=== PATIENT | male | born 1960 | race American Indian/Alaskan Native ===

== ENCOUNTER 2017-08-26 21:07 | Emergency (ER) | payer OTHER ==
[~2017-08-26] VITALS: Ht 165.1 cm; Wt 78.9 kg
[~2017-08-26 21:07] MED LIST: BACTRIM DS TAB1 EACH PO; BACTROBAN22 GM TOP; BLOOD PRESSURE MED; KEFLEX500 MG PO; LEVAQUIN750 MG PO; LISINOPRIL10 MG PO; LISINOPRIL20 MG PO; MULTIVITAMINS1 EAC7 PO; NAPROXEN500 MG PO; TRAMADOL HCL50 MG PO; VISTARIL25 MG PO
[2017-08-26] MEDS ORDERED: LISINOPRIL20 MG PO (21:17)
== END 2017-08-27 00:59 | disposition home or self-care (01) ==
LOC: ED 21:07
DX: F10.129 Alcohol abuse with intoxication, unspecified (principal); I10 Essential (primary) hypertension; Z79.899 Other long term (current) drug therapy; Y90.8 Blood alcohol level of 240 mg/100 ml or more
CPT/HCPCS: 80053; 83690; 85025; 96361; 96374; 99283; G0480; J3411; J7030

== ENCOUNTER 2017-09-22 15:05 | Emergency (ER) | payer OTHER ==
[~2017-09-22] VITALS: Ht 165.1 cm; Wt 78.9 kg
--- NOTE | 2017-09-23 12:06 | EKG ---
[facility] [address] [place] [address] Signed Normal sinus rhythm Left axis deviation Abnormal ECG No previous ECGs available Confirmed by WILLIAM COLLAZO MD ([id number]) on 09/23/2017 12:06:36 PM Electronically Signed By: WILLIAM COLLAZO MD 09/23/17 1206 PATIENT NAME: ABDIRASHID LOPEZ Electrocardiogram DATE OF : 56 PHYSICIAN: WILLIAM COLLAZO MD REPORT #: [id number] REPORT IS CONFIDENTIAL AND NOT TO BE RELEASED WITHOUT AUTHORIZATION
== END 2017-09-22 17:45 | disposition home or self-care (01) ==
LOC: ED 15:05
DX: S06.9X9A Unspecified intracranial injury with loss of consciousness of unspecified duration, initial encounter (principal); F10.129 Alcohol abuse with intoxication, unspecified; I10 Essential (primary) hypertension; F17.200 Nicotine dependence, unspecified, uncomplicated; Z98.890 Other specified postprocedural states; Z79.899 Other long term (current) drug therapy; W10.9XXA Fall (on) (from) unspecified stairs and steps, initial encounter
CPT/HCPCS: 70450; 93005; 93010; 99284

== ENCOUNTER 2019-11-20 05:40 | Emergency (ER) | payer OTHER ==
[~2019-11-20] VITALS: Ht 170.2 cm; Wt 77.4 kg
[~2019-11-20 05:40] MED LIST changes: +NORCO 5-325 TA1 EACH PO
[2019-11-20] MEDS ORDERED: HYDROXYZINE HCL25 MG PO (06:22)
[2019-11-20] MEDS ORDERED: PREDNISONE20 MG PO (06:22)
== END 2019-11-20 06:27 | disposition home or self-care (01) ==
LOC: ED 05:40
DX: L40.9 Psoriasis, unspecified (principal); I10 Essential (primary) hypertension; Z87.891 Personal history of nicotine dependence; Z79.899 Other long term (current) drug therapy
CPT/HCPCS: 99283

== ENCOUNTER 2019-12-09 20:10 | Emergency (ER) | payer OTHER ==
[~2019-12-09] VITALS: Ht 170.2 cm; Wt 79.6 kg
[~2019-12-09 20:10] MED LIST changes: +HYDROXYZINE HCL25 MG PO; +PREDNISONE20 MG PO
--- OUTSIDE RECORDS SUMMARY | 2019-12-09 20:14 | XMS ---
PreManage Notification: ABDIRASHID LOPEZ Security Hearing Screener Events No recent Security Events currently on file CRITERIA MET - [facility] - 2 Visits in 30 Days CARE PROVIDERS There are no care providers on record at this time. Sofie has no Care Guidelines for this patient. [facility] NOTE: Visits indicate total known visits. ED/C VISIT TRACKING (12 MO.) [facility]2019 [facility] COMPLAINT: - UPPER BACK,ARMS,NECK PAIN 11/20/2019 05:41 [facility] Negron [place] TYPE: Emergency COMPLAINT: - BLOOD PRESSURE PROBLEM, SKIN PROBLEM DIAGNOSES: - Other mcc (current) drug therapy - Psoriasis, unspecified - Personal history of nicotine dependence - Essential (primary) hypertension 05/11/2019 20:53 [facility]gr[facility] [place] TYPE: Emergency COMPLAINT: - RIGHT INDEX FINGER LACERATION DIAGNOSES: - Essential (primary) hypertension - Oth foreign body or object entering through skin, init - Nicotine dependence, unspecified, uncomplicated - Laceration w/o fb of r idx fngr w/o damage to nail, init - Other mcc (current) drug therapy - Disp fx of distal phalanx of r idx fngr, init for opn fx INPATIENT VISIT TRACKING (12 MO.) No inpatient visits to display in this time frame [id number]
== END 2019-12-09 20:48 | disposition home or self-care (01) ==
LOC: ED 20:10
DX: L40.9 Psoriasis, unspecified (principal); I10 Essential (primary) hypertension; Z79.899 Other long term (current) drug therapy
CPT/HCPCS: 99282; J7512

== ENCOUNTER 2020-01-28 15:46 | Emergency (ER) | payer OTHER ==
[~2020-01-28] VITALS: Ht 170.2 cm; Wt 79.6 kg
[2020-01-28] MEDS ORDERED: HYDROXYZINE HCL25 MG PO (16:40)
[2020-01-28] MEDS ORDERED: PREDNISONE20 MG PO (16:40)
== END 2020-01-28 19:13 | disposition home or self-care (01) ==
LOC: ED 15:46
DX: S20.212A Contusion of left front wall of thorax, initial encounter (principal); S20.211A Contusion of right front wall of thorax, initial encounter; W10.9XXA Fall (on) (from) unspecified stairs and steps, initial encounter
CPT/HCPCS: 71046; 99283-25

== ENCOUNTER 2020-05-05 13:57 | Emergency (ER) | payer OTHER ==
[~2020-05-05] VITALS: Ht 170.2 cm; Wt 79.6 kg
--- OUTSIDE RECORDS SUMMARY | 2020-05-05 14:00 | XMS ---
PreManage Notification: ABDIRASHID LOPEZ Security Sulfonation Equipment Operator Events No recent Security Events currently on file CRITERIA MET - Group Notification - [facility] - Has Care Guidelines CARE PROVIDERS EAMON [facility] 12/13/2019-Current PHONE: [phone] Sofie has no Care Guidelines for this patient. Care History Medical/Surgical 12/13/2019 [facility] \T\middot;\T\nbsp; PATIENT IS A [employer] MEMBER. \T\middot;\T\nbsp; PLEASE REFER PATIENT TO [facility] FOR NON EMERGENT MEDICAL NEEDS. \T\middot;\ T\nbsp; [facility] CAN SEE PATIENTS SAME DAY FOR APTS IF PATIENT CALLS FIRST THING IN THE MORNING. E.D. VISIT COUNT (12 MO.) [address] [facility] TOTAL 5 NOTE: Visits indicate total known visits. ED/UCC VISIT TRACKING (12 MO.) 05/05/2020 13:57 [facility] [place] TYPE: Emergency COMPLAINT: - FALL, BACK PAIN 01/28/2020 15:47 [facility] [place] TYPE: Emergency COMPLAINT: - RIB PAIN, INJ DIAGNOSES: - Fall (on) (from) unspecified stairs and steps, initial encoun - Contusion of left front wall of thorax, initial encounter - Other chest pain - Contusion of right front wall of thorax, initial encounter 12/09/2019 20:11 [facility] [place] TYPE: Emergency COMPLAINT: - UPPER BACK,ARMS,NECK PAIN DIAGNOSES: - Other remote computer terminal operator (current) drug therapy - Psoriasis, unspecified - Rash and other nonspecific skin eruption - Essential (primary) hypertension 11/20/2019 05:41 [facility] [place] TYPE: Emergency COMPLAINT: - BLOOD PRESSURE PROBLEM, SKIN PROBLEM DIAGNOSES: - Other chcf (current) drug therapy - Psoriasis, unspecified - Personal history of nicotine dependence - Essential (primary) hypertension 05/11/2019 20:53 [facility] [place] TYPE: Emergency COMPLAINT: - RIGHT INDEX FINGER LACERATION DIAGNOSES: - Essential (primary) hypertension - Other foreign body or object entering through skin, initial e - Nicotine dependence, unspecified, uncomplicated - Laceration without foreign body of right index finger without - Other chcf (current) drug therapy - Displaced fracture of distal phalanx of right index finger, i INPATIENT VISIT TRACKING (12 MO.) No inpatient visits to display in this time frame [id number]
== END 2020-05-05 15:58 | disposition home or self-care (01) ==
LOC: ED 13:57
DX: F10.10 Alcohol abuse, uncomplicated (principal); S20.212A Contusion of left front wall of thorax, initial encounter; S20.211A Contusion of right front wall of thorax, initial encounter; I10 Essential (primary) hypertension; Z79.899 Other long term (current) drug therapy; W18.30XA Fall on same level, unspecified, initial encounter
CPT/HCPCS: 99283

== ENCOUNTER 2020-06-21 12:14 | Emergency (ER) | payer OTHER ==
[~2020-06-21] VITALS: Ht 170.2 cm; Wt 79.6 kg
--- OUTSIDE RECORDS SUMMARY | 2020-06-21 12:16 | XMS ---
PreManage Notification: ABDIRASHID LOPEZ Security Behavioral Pediatrician Events No recent Security Events currently on file CRITERIA MET - Group Notification - [facility] - Has Care Guidelines CARE PROVIDERS EAMON [facility] 12/13/2019-Current PHONE: [phone] Sofie has no Care Guidelines for this patient. Care History Medical/Surgical 12/13/2019 [facility] \T\middot;\T\nbsp; PATIENT IS A [employer] MEMBER. \T\middot;\T\nbsp; PLEASE REFER PATIENT TO [facility] FOR NON EMERGENT MEDICAL NEEDS. \T\middot;\ T\nbsp; [facility] CAN SEE PATIENTS SAME DAY FOR APTS IF PATIENT CALLS FIRST THING IN THE MORNING. E.D. VISIT COUNT (12 MO.) 5 [facility] TOTAL 5 NOTE: Visits indicate total known visits. ED/UCC VISIT TRACKING (12 MO.) 06/21/2020 12:14 [facility] [place] TYPE: Emergency COMPLAINT: - FALL 05/05/2020 13:57 RKIA Negron [place] TYPE: Emergency COMPLAINT: - FALL, BACK PAIN DIAGNOSES: - Low back pain - Alcohol dependence, uncomplicated - Contusion of right front wall of thorax, initial encounter - Contusion of left front wall of thorax, initial encounter - Essential (primary) hypertension - Fall on same level, unspecified, initial encounter - Alcohol abuse, uncomplicated - Other intermission coordinator (current) drug therapy 01/28/2020 15:47 [facility] [place] TYPE: Emergency COMPLAINT: - RIB PAIN, INJ DIAGNOSES: - Fall (on) (from) unspecified stairs and steps, initial encoun - Contusion of left front wall of thorax, initial encounter - Other chest pain - Contusion of right front wall of thorax, initial encounter 12/09/2019 20:11 [facility] [place] TYPE: Emergency COMPLAINT: - UPPER BACK,ARMS,NECK PAIN DIAGNOSES: - Other intermission coordinator (current) drug therapy - Psoriasis, unspecified - Rash and other nonspecific skin eruption - Essential (primary) hypertension 11/20/2019 05:41 [facility] [place] TYPE: Emergency COMPLAINT: - BLOOD PRESSURE PROBLEM, SKIN PROBLEM DIAGNOSES: - Other prison (current) drug therapy - Psoriasis, unspecified - Personal history of nicotine dependence - Essential (primary) hypertension INPATIENT VISIT TRACKING (12 MO.) No inpatient visits to display in this time frame [id number]
--- NOTE | 2020-06-21 15:24 | EKG ---
[facility] [address] [place], [place] [address] Signed Normal sinus rhythm Left axis deviation Abnormal ECG When compared with ECG of 22-SEP-2017 15:13, No significant change was found Confirmed by ALEX SOTOMAYOR MD ([id number]) on 06/21/2020 3:23:55 PM Electronically Signed By: ALEX SOTOMAYOR MD 06/21/20 1524 PATIENT NAME: ABDIRASHID LOPEZ Electrocardiogram DATE OF : 56 PHYSICIAN: ALEX SOTOMAYOR MD REPORT #: [id number] REPORT IS CONFIDENTIAL AND NOT TO BE RELEASED WITHOUT AUTHORIZATION
== END 2020-06-21 14:24 | disposition home or self-care (01) ==
LOC: ED 12:14
DX: S06.9X1A Unspecified intracranial injury with loss of consciousness of 30 minutes or less, initial encounter (principal); S00.01XA Abrasion of scalp, initial encounter; F10.229 Alcohol dependence with intoxication, unspecified; Y90.8 Blood alcohol level of 240 mg/100 ml or more; I10 Essential (primary) hypertension; W01.10XA Fall on same level from slipping, tripping and stumbling with subsequent striking against unspecified object, initial encounter
CPT/HCPCS: 70450; 72125; 80053; 84484; 85025; 93005; 93010; 96372; 99284-25; G0480; J3411

== ENCOUNTER 2020-07-26 14:32 | Emergency (ER) | payer OTHER ==
[~2020-07-26] VITALS: Ht 170.2 cm; Wt 79.6 kg
--- OUTSIDE RECORDS SUMMARY | 2020-07-26 14:34 | XMS ---
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 Care History Medical/Surgical 06/22/2020 [facility] - PATIENT IS [facility] ELIGIBLE, \T\middot;\T\nbsp; PLEASE REFER PATIENT TO [facility] FOR NON EMERGENT MEDICAL NEEDS. \T\middot;\T\nbsp; [facility] CAN SEE PATIENTS SAME DAY FOR APTS IF PATIENT CALLS FIRST THING IN THE MORNING. E.D. VISIT COUNT (12 MO.) [address] [place] [address] TOTAL 6 NOTE: Visits indicate total known visits. ED/UCC VISIT TRACKING (12 MO.) 07/26/2020 14:33 [facility] [place] TYPE: Emergency COMPLAINT: - ALTERED LEVEL CONSCIOUSNESS 06/21/2020 12:14 [facility] [place] TYPE: Emergency COMPLAINT: - FALL DIAGNOSES: - Unspecified intracranial injury with loss of consciousness of - Blood alcohol level of 240 mg/100 ml or more - Essential (primary) hypertension - Abrasion of scalp, initial encounter - Unspecified intracranial injury with loss of consciousness of - Alcohol dependence with intoxication, unspecified - Fall on same level from slipping, tripping and stumbling with - Abrasion of scalp, initial encounter 05/05/2020 13:57 [facility] [place] TYPE: Emergency COMPLAINT: - FALL, BACK PAIN DIAGNOSES: - Low back pain - Alcohol dependence, uncomplicated - Contusion of right front wall of thorax, initial encounter - Contusion of left front wall of thorax, initial encounter - Essential (primary) hypertension - Fall on same level, unspecified, initial encounter - Alcohol abuse, uncomplicated - Other group home (current) drug therapy 01/28/2020 15:47 [facility] [place] TYPE: Emergency COMPLAINT: - RIB PAIN, INJ DIAGNOSES: - Fall (on) (from) unspecified stairs and steps, initial encoun - Contusion of left front wall of thorax, initial encounter - Other chest pain - Contusion of right front wall of thorax, initial encounter 12/09/2019 20:11 IRKA Negron [place] TYPE: Emergency COMPLAINT: - UPPER BACK,ARMS,NECK PAIN DIAGNOSES: - Other remote computer terminal operator (current) drug therapy - Psoriasis, unspecified - Rash and other nonspecific skin eruption - Essential (primary) hypertension 11/20/2019 05:41 [facility] [place] TYPE: Emergency COMPLAINT: - BLOOD PRESSURE PROBLEM, SKIN PROBLEM DIAGNOSES: - Other group home (current) drug therapy - Psoriasis, unspecified - Personal history of nicotine dependence - Essential (primary) hypertension INPATIENT VISIT TRACKING (12 MO.) No inpatient visits to display in this time frame [id number]
--- NOTE | 2020-07-27 09:17 | EKG ---
[facility] [address] [place] [address] Signed Normal sinus rhythm Left axis deviation Abnormal ECG When compared with ECG of 21-JUN-2020 12:44, No significant change was found Confirmed by WILLIAM COLLAZO MD ([id number]) on 07/27/2020 9:16:58 AM Electronically Signed By: WILLIAM COLLAZO MD 07/27/20 0917 PATIENT NAME: ABDIRASHID LOPEZ Electrocardiogram DATE OF : 56 PHYSICIAN: WILLIAM COLLAZO MD REPORT #: [id number] REPORT IS CONFIDENTIAL AND NOT TO BE RELEASED WITHOUT AUTHORIZATION
== END 2020-07-26 17:15 | disposition home or self-care (01) ==
LOC: ED 14:32
DX: F10.229 Alcohol dependence with intoxication, unspecified (principal); Y90.8 Blood alcohol level of 240 mg/100 ml or more; I10 Essential (primary) hypertension; Z87.891 Personal history of nicotine dependence; Z79.899 Other long term (current) drug therapy
CPT/HCPCS: 80053; 81001; 83690; 83735; 85025; 93005; 93010; 99285-25; G0480; J7030

== ENCOUNTER 2021-05-21 06:32 | Emergency (ER) | payer OTHER ==
[~2021-05-21] VITALS: Ht 170.2 cm; Wt 79.6 kg
--- OUTSIDE RECORDS SUMMARY | 2021-05-21 06:40 | XMS ---
PreManage Notification: ABDIRASHID LOPEZ Security Independent Video Producer Events No recent Security Events currently on file CRITERIA MET - Group Notification CARE PROVIDERS EAMON [facility] 12/13/2019-Current PHONE: [phone] Sofie has no Care Guidelines for this patient. Care History Medical/Surgical 06/22/2020 [facility] - PATIENT IS [facility] ELIGIBLE, \T\middot;\T\nbsp; PLEASE REFER PATIENT TO [facility] FOR NON EMERGENT MEDICAL NEEDS. \T\middot;\T\nbsp; [facility] CAN SEE PATIENTS SAME DAY FOR APTS IF PATIENT CALLS FIRST THING IN THE MORNING. E.D. VISIT COUNT (12 MO.) 3 [facility] TOTAL 3 NOTE: Visits indicate total known visits. ED/UCC VISIT TRACKING (12 MO.) 05/21/2021 06:33 [facility] [place] TYPE: Emergency COMPLAINT: - CHEST PAIN 07/26/2020 14:33 [facility] [place] TYPE: Emergency COMPLAINT: - ALTERED LEVEL CONSCIOUSNESS DIAGNOSES: - Essential (primary) hypertension - Alcohol dependence with intoxication, unspecified - Blood alcohol level of 240 mg/100 ml or more - Altered mental status, unspecified - Personal history of nicotine dependence - Other skilled nursing (current) drug therapy 06/21/2020 12:14 [facility] [place] TYPE: Emergency COMPLAINT: - FALL DIAGNOSES: - Unspecified intracranial injury with loss of consciousness of 30 minutes or less, initial encounter - Blood alcohol level of 240 mg/100 ml or more - Essential (primary) hypertension - Abrasion of scalp, initial encounter - Unspecified intracranial injury with loss of consciousness of 30 minutes or less, initial encounter - Alcohol dependence with intoxication, unspecified - Fall on same level from slipping, tripping and stumbling with subsequent striking against unspecified object, initial encounter - Abrasion of scalp, initial encounter INPATIENT VISIT TRACKING (12 MO.) No inpatient visits to display in this time frame [id number]
--- NOTE | 2021-05-22 07:11 | EKG ---
[facility] [address] [place], [place] [address] Signed Normal sinus rhythm Left anterior fascicular block Abnormal ECG When compared with ECG of 26-JUL-2020 15:07, No significant change was found Confirmed by ALEX SOTOMAYOR MD ([id number]) on 05/22/2021 7:11:21 AM Electronically Signed By: ALEX SOTOMAYOR MD 05/22/21710 PATIENT NAME: ABDIRASHID LOPEZ Electrocardiogram DATE OF : 56 PHYSICIAN: ALEX SOTOMAYOR MD REPORT #: [id number] REPORT IS CONFIDENTIAL AND NOT TO BE RELEASED WITHOUT AUTHORIZATION
== END 2021-05-21 10:39 | disposition home or self-care (01) ==
LOC: ED 06:32
DX: R07.9 Chest pain, unspecified (principal); F10.129 Alcohol abuse with intoxication, unspecified; Y90.7 Blood alcohol level of 200-239 mg/100 ml; I10 Essential (primary) hypertension; Z79.899 Other long term (current) drug therapy
CPT/HCPCS: 71045; 80053; 83735; 84484; 85025; 93005; 93010; 99285-25; G0480; J7030

== ENCOUNTER 2021-05-30 22:55 | Emergency (ER) | payer OTHER ==
[~2021-05-30] VITALS: Ht 170.2 cm; Wt 79.6 kg
--- OUTSIDE RECORDS SUMMARY | 2021-05-30 23:02 | XMS ---
PreManage Notification: ABDIRASHID LOPEZ Security Car Detailer Events No recent Security Events currently on file CRITERIA MET - [facility] - 2 Visits in 30 Days - Group Notification CARE PROVIDERS EAMON [facility] 12/13/2019-Current PHONE: [phone] Sofie has no Care Guidelines for this patient. Care History Medical/Surgical 06/22/2020 [facility] - PATIENT IS [facility] ELIGIBLE, \T\middot;\T\nbsp; PLEASE REFER PATIENT TO [facility] FOR NON EMERGENT MEDICAL NEEDS. \T\middot;\T\nbsp; [facility] CAN SEE PATIENTS SAME DAY FOR APTS IF PATIENT CALLS FIRST THING IN THE MORNING. E.D. VISIT COUNT (12 MO.) 4 [facility] TOTAL 4 NOTE: Visits indicate total known visits. ED/UCC VISIT TRACKING (12 MO.) 05/30/2021 22:56 [facility] [place] TYPE: Emergency COMPLAINT: - INTOXICATION 05/21/2021 06:33 [facility]gron [place] TYPE: Emergency COMPLAINT: - CHEST PAIN DIAGNOSES: - Alcohol abuse with intoxication, unspecified - Essential (primary) hypertension - Chest pain, unspecified - Blood alcohol level of 200-239 mg/100 ml - Other termite exterminator (current) drug therapy 07/26/2020 14:33 [facility] [place] TYPE: Emergency COMPLAINT: - ALTERED LEVEL CONSCIOUSNESS DIAGNOSES: - Essential (primary) hypertension - Alcohol dependence with intoxication, unspecified - Blood alcohol level of 240 mg/100 ml or more - Altered mental status, unspecified - Personal history of nicotine dependence - Other intermediate (current) drug therapy 06/21/2020 12:[address] [facility] [place] TYPE: Emergency COMPLAINT: - FALL DIAGNOSES: [...] visits to display in this time frame [id number]
== END 2021-05-31 11:26 | disposition home or self-care (01) ==
LOC: ED 22:55
DX: F10.229 Alcohol dependence with intoxication, unspecified (principal); Y90.8 Blood alcohol level of 240 mg/100 ml or more; I10 Essential (primary) hypertension
CPT/HCPCS: 80053; 85025; 99284; G0480; J7030

== ENCOUNTER 2021-06-14 03:34 | Emergency (ER) | payer OTHER ==
[~2021-06-14] VITALS: Ht 170.2 cm; Wt 79.6 kg
--- OUTSIDE RECORDS SUMMARY | 2021-06-14 03:42 | XMS ---
PreManage Notification: ABDIRASHID LOPEZ Security Blintze Roller Events No recent Security Events currently on file CRITERIA MET - Group Notification - [facility] - 2 Visits in 30 Days CARE PROVIDERS EAMON [facility] 12/13/2019-Current PHONE: [phone] Sofie has no Care Guidelines for this patient. Care History Medical/Surgical 06/22/2020 [facility] - PATIENT IS [facility] ELIGIBLE, \T\middot;\T\nbsp; PLEASE REFER PATIENT TO [facility] FOR NON EMERGENT MEDICAL NEEDS. \T\middot;\T\nbsp; [facility] CAN SEE PATIENTS SAME DAY FOR APTS IF PATIENT CALLS FIRST THING IN THE MORNING. E.D. VISIT COUNT (12 MO.) [address] [facility] TOTAL 6 NOTE: Visits indicate total known visits. ED/UCC VISIT TRACKING (12 MO.) 06/14/2021 03:35 RIKA Coffey TYPE: Emergency COMPLAINT: - ALCOHOL INTOXICATION [facility]2021 [facility] DIAGNOSES: 0. INTOXICATION 05/30/2021 22:56 RIKA Coffey TYPE: Emergency COMPLAINT: - INTOXICATION DIAGNOSES: - Alcohol abuse with intoxication, unspecified - Alcohol abuse with intoxication, unspecified - Alcohol dependence with intoxication, unspecified - Essential (primary) hypertension - Blood alcohol level of 240 mg/100 ml or more 05/21/2021 06:33 [facility] Miguelangel Stubbs [place] TYPE: Emergency COMPLAINT: - CHEST PAIN DIAGNOSES: - Alcohol abuse with intoxication, unspecified - Essential (primary) hypertension - Chest pain, unspecified - Blood alcohol level of 200-239 mg/100 ml - Other terminal operator (current) drug therapy 07/26/2020 14:33 [facility]gr[facility] [place] TYPE: Emergency COMPLAINT: - ALTERED LEVEL CONSCIOUSNESS DIAGNOSES: - Essential (primary) hypertension - Alcohol dependence with intoxication, unspecified - Blood alcohol level of 240 mg/100 ml or more - Altered mental status, unspecified - Personal history of nicotine dependence - Other intermediate (current) drug therapy 06/21/2020 12:14 [facility] [address] [facility] Stubbs [place] TYPE: Emergency COMPLAINT: [...] visits to display in this time frame [id number]
== END 2021-06-14 11:15 | disposition home or self-care (01) ==
LOC: ED 03:34
DX: F10.129 Alcohol abuse with intoxication, unspecified (principal); Y90.8 Blood alcohol level of 240 mg/100 ml or more; I10 Essential (primary) hypertension; F17.200 Nicotine dependence, unspecified, uncomplicated; Z79.899 Other long term (current) drug therapy
CPT/HCPCS: 70450; 80053; 85025; 99285-25; G0480

== ENCOUNTER 2021-07-03 19:07 | Emergency (ER) | payer OTHER ==
[~2021-07-03] VITALS: Ht 170.2 cm; Wt 79.6 kg
--- OUTSIDE RECORDS SUMMARY | 2021-07-03 20:04 | XMS ---
PreManage Notification: ABDIRASHID LPOEZ Security Vat Skimmer Events No recent Security Events currently on file CRITERIA MET - [facility] - 2 Visits in 30 Days - Group Notification CARE PROVIDERS EAMON [facility] 12/13/2019-Current PHONE: [phone] Sofie has no Care Guidelines for this patient. Care History Medical/Surgical 06/22/2020 [facility] - PATIENT IS [facility] ELIGIBLE, \T\middot;\T\nbsp; PLEASE REFER PATIENT TO [facility] FOR NON EMERGENT MEDICAL NEEDS. \T\middot;\T\nbsp; [facility] CAN SEE PATIENTS SAME DAY FOR APTS IF PATIENT CALLS FIRST THING IN THE MORNING. E.D. VISIT COUNT (12 MO.) [address] [facility] TOTAL 6 NOTE: Visits indicate total known visits. ED/UCC VISIT TRACKING (12 MO.) 07/03/2021 19:07 [facility] [place] TYPE: Emergency COMPLAINT: - INTOXICATION 06/14/2021 03:35 [facility] [place] TYPE: Emergency COMPLAINT: - ALCOHOL INTOXICATION DIAGNOSES: - Alcohol abuse with intoxication, unspecified - Essential (primary) hypertension - Other keno terminal operator (current) drug therapy - Blood alcohol level of 240 mg/100 ml or more - Nicotine dependence, unspecified, uncomplicated 06/03/2021 00:[facility]: Emergency DIAGNOSES: 0. INTOXICATION 05/30/2021 22:56 [facility] [place] [facility]: Emergency COMPLAINT: - INTOXICATION DIAGNOSES: - Alcohol abuse with intoxication, unspecified - Alcohol abuse with intoxication, unspecified - Alcohol dependence with intoxication, unspecified - Essential (primary) hypertension - Blood alcohol level of 240 mg/100 ml or more 05/21/2021 06:33 [facility] [place] TYPE: Emergency COMPLAINT: - CHEST PAIN DIAGNOSES: - Alcohol abuse with intoxication, unspecified - Essential (primary) hypertension - Chest pain, unspecified - Blood alcohol level of 200-239 mg/100 ml - Other keno terminal operator (current) drug therapy 07/26/2020 14:33 [facility] [address] [place] TYPE: Emergency COMPLAINT: - ALTERED LEVEL CONSCIOUSNESS DIAGNOSES: - Essential (primary) hypertension - Alcohol dependence with intoxication, unspecified - Blood alcohol level of 240 mg/100 ml or more - Altered mental status, unspecified - Personal history of nicotine dependence - Other keno terminal operator (current) drug therapy INPATIENT VISIT TRACKING (12 MO.) No inpatient visits to display in this time frame [id number]
== END 2021-07-04 06:05 | disposition home or self-care (01) ==
LOC: ED 19:07
DX: F10.129 Alcohol abuse with intoxication, unspecified (principal); I10 Essential (primary) hypertension; F17.200 Nicotine dependence, unspecified, uncomplicated; Z79.899 Other long term (current) drug therapy; Y90.8 Blood alcohol level of 240 mg/100 ml or more
CPT/HCPCS: 70450; 80053; 85025; 99284-25; G0480; J7030

== ENCOUNTER 2021-08-06 18:57 | Emergency (ER) | payer OTHER ==
[~2021-08-06] VITALS: Ht 170.2 cm; Wt 74.8 kg
--- OUTSIDE RECORDS SUMMARY | 2021-08-06 19:06 | XMS ---
PreManage Notification: ABDIRASHID LOPEZ Security Derrick Car Operator Events No recent Security Events currently on file CRITERIA MET - 6 ED Visits in 6 Months - Group Notification CARE PROVIDERS ИРИНА KNUTSON [facility] 12/13/2019-[facility] PHONE: [phone] [facility] 07/04/2021-[facility] PHONE: [phone] Sofie has no Care Guidelines for this patient. Care History Medical/Surgical 06/22/2020 [facility] - [facility], \T\middot;\T\nbsp; PLEASE REFER PATIENT [facility] FOR NON EMERGENT MEDICAL NEEDS. \T\middot;\T\nbsp; [facility] CAN SEE PATIENTS SAME DAY FOR APTS IF PATIENT CALLS FIRST THING IN THE MORNING. E.D. VISIT COUNT (12 MO.) 1 [facility] [address] [facility] TOTAL 6 NOTE: Visits indicate total known visits. ED/UCC VISIT TRACKING (12 MO.) 08/06/2021 18:59 [facility] [place] TYPE: Emergency COMPLAINT: - FLU SYMPTOMS 07/03/2021 19:07 [facility] [place] TYPE: Emergency COMPLAINT: - INTOXICATION DIAGNOSES: - Essential (primary) hypertension - Blood alcohol level of 240 mg/100 ml or more - Other dedicated intermodal truck driver (current) drug therapy - Nicotine dependence, unspecified, uncomplicated - Alcohol abuse with intoxication, unspecified 06/14/2021 03:35 [facility] [place] TYPE: Emergency COMPLAINT: - ALCOHOL INTOXICATION DIAGNOSES: - Alcohol abuse with intoxication, unspecified - Essential (primary) hypertension - Other care home (current) drug therapy - Blood alcohol level of 240 mg/100 ml or more - Nicotine dependence, unspecified, uncomplicated 06/03/2021 00:44 [facility] [place] [facility] TYPE: Emergency DIAGNOSES: 0. INTOXICATION 05/30/2021 22:56 [facility]ub[facility] [place] TYPE: Emergency COMPLAINT: - INTOXICATION DIAGNOSES: - Alcohol abuse with intoxication, unspecified - Alcohol abuse with intoxication, unspecified - Alcohol dependence with intoxication, unspecified - Essential (primary) hypertension - Blood alcohol level of 240 mg/100 ml or more 05/21/2021 06:33 [facility] [place] TYPE: Emergency COMPLAINT: - CHEST PAIN DIAGNOSES: - Alcohol abuse with intoxication, unspecified - Essential (primary) hypertension - Chest pain, unspecified - Blood alcohol level of 200-239 mg/100 ml - Other care home (current) drug therapy INPATIENT VISIT TRACKING (12 MO.) No inpatient visits to display in this time frame [id number]
== END 2021-08-06 23:34 | disposition home or self-care (01) ==
LOC: ED 18:57
DX: J06.9 Acute upper respiratory infection, unspecified (principal); I10 Essential (primary) hypertension; F17.200 Nicotine dependence, unspecified, uncomplicated; Z20.822 Contact with and (suspected) exposure to COVID-19; Z79.899 Other long term (current) drug therapy
CPT/HCPCS: 99284; C9803; U0003

== ENCOUNTER 2021-10-30 05:01 | Emergency (ER) | payer OTHER ==
[~2021-10-30] VITALS: Ht 170.2 cm; Wt 74.8 kg
--- OUTSIDE RECORDS SUMMARY | 2021-10-30 05:08 | XMS ---
PreManage Notification: ABDIRASHID LOPEZ Security Fishing Line Winding Machine Operator Events No recent Security Events currently on file CRITERIA MET - Group Notification - 6 ED Visits in 6 Months CARE PROVIDERS ИРИНА KNUTSON [facility] 12/13/2019-[facility] PHONE: Unknown [facility]/[place] 07/04/2021-[facility] PHONE: [phone] Sofie has no Care Guidelines for this patient. Care History Medical/Surgical 06/22/2020 [facility] - PATIENT IS [employer] ELIGIBLE, \T\middot;\T\nbsp; PLEASE REFER PATIENT TO [facility] FOR NON EMERGENT MEDICAL NEEDS. \T\middot;\T\nbsp; [facility] CAN SEE PATIENTS SAME DAY FOR APTS IF PATIENT CALLS FIRST THING IN THE MORNING. E.D. VISIT COUNT (12 [address] [facility] RIKA [facility] TOTAL 7 NOTE: Visits indicate total known visits. ED/UCC VISIT TRACKING (12 MO.) 10/30/2021 05:02 [facility] [place] TYPE: Emergency COMPLAINT: - WEAKNESS 08/06/2021 18:59 [facility] [place] TYPE: Emergency COMPLAINT: - FLU SYMPTOMS DIAGNOSES: - Other usp (current) drug therapy - Nicotine dependence, unspecified, uncomplicated - Acute upper respiratory infection, unspecified - Headache, unspecified - Essential (primary) hypertension 07/03/2021 19:07 [facility] [place] TYPE: Emergency COMPLAINT: - INTOXICATION DIAGNOSES: - Essential (primary) hypertension - Blood alcohol level of 240 mg/100 ml or more - Other usp (current) drug therapy - Nicotine dependence, unspecified, uncomplicated - Alcohol abuse with intoxication, unspecified 06/14/2021 03:[address] [facility] [address] [facility] TYPE: Emergency COMPLAINT: - ALCOHOL INTOXICATION DIAGNOSES: - Alcohol abuse with intoxication, unspecified - Essential (primary) hypertension - Other usp (current) drug therapy - Blood alcohol level of 240 mg/100 ml or more - Nicotine dependence, unspecified, uncomplicated 06/03/2021 00:44 [facility] DIAGNOSES: 0. INTOXICATION 05/30/2021 22:56 [facility] [place] TYPE: Emergency [...] level of 200-239 mg/100 ml - Other superintendent container terminal (current) drug therapy INPATIENT VISIT TRACKING (12 MO.) No inpatient visits to display in this time frame [id number]
--- NOTE | 2021-10-30 22:01 | EKG ---
[facility] [address] [place] [address] Signed Normal sinus rhythm Left anterior fascicular block Nonspecific ST abnormality Abnormal ECG When compared with ECG of 21-MAY-2021 06:36, ST now depressed in Inferior leads Confirmed by YVONNE NDIAYE DO ([id number]) on 10/30/2021 10:00:43 PM Electronically Signed By: YVONNE NDIAYE DO 10/30/212200 PATIENT NAME: ABDIRASHID LOPEZ Electrocardiogram DATE OF : 56 PHYSICIAN: YVONNE NDIAYE DO REPORT #: [id number] REPORT IS CONFIDENTIAL AND NOT TO BE RELEASED WITHOUT AUTHORIZATION
== END 2021-10-30 10:55 | disposition home or self-care (01) ==
LOC: ED 05:01
DX: F10.20 Alcohol dependence, uncomplicated (principal); Y90.6 Blood alcohol level of 120-199 mg/100 ml; R53.1 Weakness; M54.50 Low back pain, unspecified; I10 Essential (primary) hypertension; F17.200 Nicotine dependence, unspecified, uncomplicated; Z79.899 Other long term (current) drug therapy; Z20.822 Contact with and (suspected) exposure to COVID-19
CPT/HCPCS: 71045; 72100; 80053; 81001; 83690; 83735; 84484; 85025; 93005; 93010; 96374; 99285-25; C9803; G0480; J2060; J7030; U0003

== ENCOUNTER 2021-12-20 13:04 | Emergency (ER) | payer OTHER ==
[~2021-12-20] VITALS: Ht 170.2 cm; Wt 75.1 kg
--- OUTSIDE RECORDS SUMMARY | 2021-12-20 13:12 | XMS ---
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 Care History Medical/Surgical 06/22/2020 [facility] - [facility], \T\middot;\T\nbsp; PLEASE REFER PATIENT TO [facility] FOR NON EMERGENT MEDICAL NEEDS. \T\middot;\T\nbsp; [facility] CAN SEE PATIENTS SAME DAY FOR APTS IF PATIENT CALLS FIRST THING IN THE MORNING. E.D. VISIT COUNT (12 MO.) 1 [facility] 7 RIKA Yi TOTAL 8 NOTE: Visits indicate total known visits. ED/UCC VISIT TRACKING (12 MO.) 12/20/2021 13:04 [facility] [place] TYPE: Emergency COMPLAINT: - FALL 10/30/2021 05:02 [facility] [place] TYPE: Emergency COMPLAINT: - WEAKNESS DIAGNOSES: - Nicotine dependence, unspecified, uncomplicated - Weakness - LOW BACK PAIN, UNSPECIFIED - Alcohol dependence, uncomplicated - Essential (primary) hypertension - Other lobsterman (current) drug therapy - Blood alcohol level of 120-199 mg/100 ml 08/06/2021 18:59 [facility] [place] TYPE: Emergency COMPLAINT: - FLU SYMPTOMS DIAGNOSES: - Other fci (current) drug therapy - Nicotine dependence, unspecified, uncomplicated - Acute upper respiratory infection, unspecified - Headache, unspecified - Essential (primary) hypertension 07/03/2021 19:[address] [facility] [place] TYPE: Emergency COMPLAINT: - INTOXICATION DIAGNOSES: - Essential (primary) hypertension - Blood alcohol level of 240 mg/100 ml or more - Other lobsterman (current) drug therapy - Nicotine dependence, unspecified, uncomplicated - Alcohol abuse with intoxication, unspecified 06/14/2021 03:35 [facility] [place] TYPE: Emergency COMPLAINT: - ALCOHOL INTOXICATION DIAGNOSES: - Alcohol abuse with intoxication, unspecified - Essential (primary) hypertension - Other lobsterman (current) drug therapy - Blood alcohol level of 240 mg/100 ml or more - Nicotine dependence, unspecified, uncomplicated 06/03/2021 00:44 [facility] DIAGNOSES: 0. INTOXICATION 05/30/2021 22:56 RIKA Coffe[facility] TYPE: Emergency COMPLAINT: - INTOXICATION DIAGNOSES: - Alcohol abuse with intoxication, unspecified - Alcohol abuse with intoxication, unspecified - Alcohol dependence with intoxication, unspecified - Essential (primary) hypertension - Blood alcohol level of 240 mg/100 ml or more 05/21/2021 06:33 RIKA Coffey TYPE: Emergency COMPLAINT: - CHEST PAIN DIAGNOSES: - Alcohol abuse with intoxication, unspecified - Essential (primary) hypertension - Chest pain, unspecified - Blood alcohol level of 200-239 mg/100 ml - Other lobsterman (current) drug therapy INPATIENT VISIT TRACKING (12 MO.) No inpatient visits to display in this time frame [email or web address]
== END 2021-12-20 18:30 | disposition home or self-care (01) ==
LOC: ED 13:04
DX: F10.239 Alcohol dependence with withdrawal, unspecified (principal); S60.511A Abrasion of right hand, initial encounter; I10 Essential (primary) hypertension; L40.9 Psoriasis, unspecified; F17.200 Nicotine dependence, unspecified, uncomplicated; Z79.899 Other long term (current) drug therapy; W01.0XXA Fall on same level from slipping, tripping and stumbling without subsequent striking against object, initial encounter
CPT/HCPCS: 36415; 80048; 85025; 99284; G0480

== ENCOUNTER 2022-07-05 14:31 | Emergency (ER) | payer OTHER ==
[~2022-07-05] VITALS: Ht 167.6 cm; Wt 81.9 kg
--- OUTSIDE RECORDS SUMMARY | 2022-07-05 14:38 | XMS ---
PreManage Notification: ABDIRASHID LOPEZ Security Trouble Clerk Events No recent Security Events currently on file CRITERIA MET - Group Notification CARE PROVIDERS ИРИНА KNUTSON [facility] 12/13/2019-[facility] PHONE: Unknown [facility]/[place] 07/04/2021-[facility] PHONE: [phone] Sofie has no Care Guidelines for this patient. Care History Medical/Surgical 06/22/2020 [facility] - [facility], \T\middot;\T\nbsp; PLEASE REFER PATIENT TO [facility] FOR NON EMERGENT MEDICAL NEEDS. \T\middot;\T\nbsp; [facility] CAN SEE PATIENTS SAME DAY FOR APTS IF PATIENT CALLS FIRST THING IN THE MORNING. E.D. VISIT COUNT (12 MO.) 1 Magdaleno [facility] 4 RIKA Yi TOTAL 5 NOTE: Visits indicate total known visits. ED/UCC VISIT TRACKING (12 MO.) 07/05/2022 14:32 [facility] [place] TYPE: Emergency COMPLAINT: - BODY RASH 03/28/2022 11:35 [facility] [place] TYPE: Emergency DIAGNOSES: - Unspecified injury of unspecified eye and orbit, initial encounter - fb in eye - Injury of conjunctiva and corneal abrasion without foreign body, left eye, initial encounter 12/20/2021 13:04 [facility] [place] [place] TYPE: Emergency COMPLAINT: - FALL DIAGNOSES: - Nicotine dependence, unspecified, uncomplicated - Other senior care (current) drug therapy - Psoriasis, unspecified - Essential (primary) hypertension - Fall on same level from slipping, tripping and stumbling without subsequent striking against object, initial encounter - Alcohol dependence with withdrawal, unspecified - Alcohol abuse with intoxication, unspecified - Abrasion of right hand, initial encounter 10/30/2021 05:02 [facility] [place] [place] TYPE: Emergency COMPLAINT: - WEAKNESS DIAGNOSES: - LOW BACK PAIN, UNSPECIFIED - Nicotine dependence, unspecified, uncomplicated - Other senior care (current) drug therapy - Alcohol dependence, uncomplicated - Weakness - Blood alcohol level of 120-199 mg/100 ml - Essential (primary) hypertension 08/06/2021 18:59 [facility] [place] TYPE: Emergency COMPLAINT: - FLU SYMPTOMS DIAGNOSES: - Acute upper respiratory infection, unspecified - Other senior care (current) drug therapy - Headache, unspecified - Nicotine dependence, unspecified, uncomplicated - Essential (primary) hypertension INPATIENT VISIT TRACKING (12 MO.) No inpatient visits to display in this time frame [email or web address]
[2022-07-05] MEDS ORDERED: TRIAMCINOLONE A15 G3 TOP (19:38)
== END 2022-07-05 20:19 | disposition home or self-care (01) ==
LOC: ED 14:31
DX: L40.9 Psoriasis, unspecified (principal); I10 Essential (primary) hypertension; F17.200 Nicotine dependence, unspecified, uncomplicated; Z79.899 Other long term (current) drug therapy
CPT/HCPCS: 99282; J3301

== ENCOUNTER 2022-08-29 02:27 | Emergency (ER) | payer OTHER ==
[~2022-08-29] VITALS: Ht 167.6 cm; Wt 81.6 kg
[~2022-08-29 02:27] MED LIST changes: +TRIAMCINOLONE A15 G3 TOP
--- OUTSIDE RECORDS SUMMARY | 2022-08-29 02:29 | XMS ---
PreManage Notification: ABDIRASHID LOPEZ Security Sash Sticker Events No recent Security Events currently on file CRITERIA MET - Group Notification CARE PROVIDERS ИРИНА KNUTSON [facility] 12/13/2019-[facility] PHONE: Unknown [facility]/[place] 07/04/2021-[facility] PHONE: [phone] Sofie has no Care Guidelines for this patient. Care History Medical/Surgical 06/22/2020 [facility] - [facility], \T\middot;\T\nbsp; PLEASE REFER PATIENT TO [facility] FOR NON EMERGENT MEDICAL NEEDS. \T\middot;\T\nbsp; [facility] CAN SEE PATIENTS SAME DAY FOR APTS IF PATIENT CALLS FIRST THING IN THE MORNING. E.D. VISIT COUNT (12 MO.) 1 Magdaleno Jackson 4 RIKA Yi TOTAL 5 NOTE: Visits indicate total known visits. ED/UCC VISIT TRACKING (12 MO.) 08/29/2022 02:27 [facility] [place] TYPE: Emergency COMPLAINT: - BLOOD PRESSURE PROBLEM 07/05/2022 14:32 [facility] [place] TYPE: Emergency COMPLAINT: - BODY RASH DIAGNOSES: - Rash and other nonspecific skin eruption - Other filler leaf cutter long (current) drug therapy - Psoriasis, unspecified - Nicotine dependence, unspecified, uncomplicated - Essential (primary) hypertension 03/28/2022 11:35 [facility] [place] TYPE: Emergency DIAGNOSES: - Injury of conjunctiva and corneal abrasion without foreign body, left eye, initial encounter - Unspecified injury of unspecified eye and orbit, initial encounter - fb in eye 12/20/2021 13:04 [facility] [place] [place] TYPE: Emergency COMPLAINT: - FALL DIAGNOSES: - Fall on same level from slipping, tripping and stumbling without subsequent striking against object, initial encounter - Alcohol dependence with withdrawal, unspecified - Alcohol abuse with intoxication, unspecified - Abrasion of right hand, initial encounter - Nicotine dependence, unspecified, uncomplicated - Other filler leaf cutter long (current) drug therapy - Psoriasis, unspecified - Essential (primary) hypertension 10/30/2021 05:02 [facility] [place] [place] TYPE: Emergency COMPLAINT: - WEAKNESS DIAGNOSES: - Alcohol dependence, uncomplicated - Weakness - Blood alcohol level of 120-199 mg/100 ml - Essential (primary) hypertension - LOW BACK PAIN, UNSPECIFIED - Nicotine dependence, unspecified, uncomplicated - Other intermediate (current) drug therapy INPATIENT VISIT TRACKING (12 MO.) No inpatient visits to display in this time frame [email or web address]
[2022-08-29] MEDS ORDERED: CARVEDILOL3.125 MG PO ×2 (02:36→04:20)
[2022-08-29] MEDS ORDERED: LISINOPRIL20 MG PO (04:20)
--- NOTE | 2022-08-29 17:05 | EKG ---
[facility] [address] [facility] [address] [place], [place] [address] Signed Sinus tachycardia Left axis deviation Abnormal ECG When compared with ECG of 30-OCT-2021 05:53, ST no longer depressed in Inferior leads Confirmed by ALEX SOTOMAYOR MD ([id number]) on 08/29/2022 5:05:33 PM Electronically Signed By: ALEX SOTOMAYOR MD 08/29/22 1705 PATIENT NAME: ABDIRASHID LOPEZ Electrocardiogram DATE OF : 56 PHYSICIAN: ALEX SOTOMAYOR MD REPORT #: [id number] REPORT IS CONFIDENTIAL AND NOT TO BE RELEASED WITHOUT AUTHORIZATION
== END 2022-08-29 05:13 | disposition home or self-care (01) ==
LOC: ED 02:27
DX: I10 Essential (primary) hypertension (principal); L40.9 Psoriasis, unspecified; F17.200 Nicotine dependence, unspecified, uncomplicated
CPT/HCPCS: 36415; 71045; 80053; 83735; 84484; 85025; 85610; 93005; 93010; 96365; 96375; 99285-25; G0480; J2405; J3475

== ENCOUNTER 2024-09-13 15:33 | Emergency (ER) | payer OTHER ==
[~2024-09-13] VITALS: Ht 167.6 cm; Wt 80.0 kg
--- OUTSIDE RECORDS SUMMARY | ~2024-09-13 | XMS | Continuity of Care Document ---
Demographics + + + | Address | [address] | | | [place] [address] | + + + | Preferred Language | Unknown | + + + | Marital Status | Unknown | + + + | Restorationism Affiliation | Unknown | + + + | Race | or | + + + | Ethnic Group | Not or | + + + Author + + + | Author | [facility] | + + + | Organization | [facility] | + + + | Address | [address] | | | [place] [address] | + + + | Phone | | + + + Care Team Providers + + + + | Care Rail Car Repair Carman Name | Role | Phone | + + + + Unavailable | Unavailable | + + + + Allergies No information. Encounters No information. Functional Status No information. Immunizations No information. Medications No information. Problems + + + + | date | description | facility | + + + + | 2024-08-21 21:44:48 | Other usp (current) | [facility] | | | drug therapy | | + + + + Procedures No information. Results/Labs No information. Social History +--------+ + + | date | description | facility | +--------+ + + Vital Signs No information."
[~2024-09-13 15:33] MED LIST changes: +CARVEDILOL3.125 MG PO
[2024-09-13 17:40] VITALS: BP 127/84
== END 2024-09-13 17:42 | disposition home or self-care (01) ==
LOC: ED 15:33
DX: S01.81XA Laceration without foreign body of other part of head, initial encounter (principal); S20.212A Contusion of left front wall of thorax, initial encounter; F10.129 Alcohol abuse with intoxication, unspecified; I10 Essential (primary) hypertension; F17.200 Nicotine dependence, unspecified, uncomplicated; Z79.899 Other long term (current) drug therapy; W18.30XA Fall on same level, unspecified, initial encounter
CPT/HCPCS: 70450; 71250; 72125; 99284-25

== ENCOUNTER 2024-10-27 13:56 | Inpatient (IN) | payer MEDICARE, OTHER ==
[~2024-10-27] VITALS: Ht 167.6 cm; Wt 64.0 kg
--- OUTSIDE RECORDS SUMMARY | ~2024-10-27 | XMS | Continuity of Care Document ---
Demographics + + + | Address | [address] | | | [place] [address] | + + + | Preferred Language | Unknown | + + + | Marital Status | Unknown | + + + | Hinduism Affiliation | Unknown | + + + | Race | or | + + + | Ethnic Group | or | + + + Author + + + | Author | [facility] | + + + | Organization | [facility] | + + + | Address | [address] | | | [place] [address] | + + + | Phone | | + + + Care Team Providers + + + + | Care Health And Wellness Director Name | Role | Phone | + + + + Unavailable | Unavailable | + + + + Allergies No information. Encounters No information. Functional Status No information. Immunizations No information. Medications No information. Problems + + + + | date | description | facility | + + + + | 2024-08-21 21:44:48 | Other alf (current) | [facility] | | | drug therapy | | + + + + Procedures No information. Results/Labs No information. Social History +--------+ + + | date | description | facility | +--------+ + + Vital Signs No information."
--- OUTSIDE RECORDS SUMMARY | ~2024-10-27 | XMS | Continuity of Care Document ---
Demographics + + + | Address | [address] | | | [place] [address] | + + + | Preferred Language | Unknown | + + + | Marital Status | Unknown | + + + | Gnosticism Affiliation | Unknown | + + + | Race | or | + + + | Ethnic Group | or | + + + Author + + + | Author | [facility] | + + + | Organization | [facility] | + + + | Address | [address] | | | [place] [address] | + + + | Phone | | + + + Care Team Providers + + + + | Care Calibration Checker Name | Role | Phone | + + + + Unavailable | Unavailable | + + + + Allergies No information. Encounters No information. Functional Status No information. Immunizations No information. Medications No information. Problems + + + + | date | description | facility | + + + + | 2024-08-21 21:44:48 | Other group home (current) | [facility] | | | drug therapy | | + + + + Procedures No information. Results/Labs No information. Social History +--------+ + + | date | description | facility | +--------+ + + Vital Signs No information."
[2024-10-27] MEDS ORDERED: SODIUM CHLORIDE 0.9% 1,000 ML IV PRN ×3 (14:45→15:30)
[2024-10-27 14:48] LABS: BASOPHILS 0.1 % (0-2); HEMATOCRIT 34.2 % (35.0-50.0); HEMOGLOBIN 11.8 g/dL (12.0-18.0); LYMPHOCYTES 2.8 % (24-44); MCH 32.4 (27-36); MCHC 34.4 g/dl (30-36); MCV 94.2 fl (81-99); MONOCYTES 3.7 % (0-12); NEUTROPHILS 93.4 % (39-80); PLATELET COUNT 248 K/uL (140-440); RBC 3.63 M/ul (4.3-5.7); RDW 15.7 (10.5-15.0)
[2024-10-27 15:00] LABS: BILIRUBIN, URINE POSITIVE (negative); BLOOD/HGB, URINE LARGE (Negative); KETONE, URINE TRACE (Negative); LEUK ESTERASE, URINE SMALL (negative); NITRITE, URINE NEGATIVE (negative)
[2024-10-27] MEDS ORDERED: NOREPINEPHRINE BITARTRATE 250 ML IV SCH (15:00)
[2024-10-27 15:02] LABS: ALBUMIN 2.6 g/dL (3.4-5.0); ALBUMIN/GLOBULIN RATIO 0.41 (1.1-2.4); ALCOHOL, MEDICAL <3 ng/dL (<3); ALKALINE PHOSPHATASE 112 U/L (46-116); ALT (SGPT) 39 U/L (14-59); ANION GAP 25.3 (7-21); AST (SGOT) 54 U/L (15-37); BILIRUBIN, TOTAL 0.6 ng/dL (0.2-1.0); BUN/CREATININE RATIO 14.19 (6.0-28.6); CALCIUM 8.3 mg/dL (8.5-10.1); CARBON DIOXIDE 14 mmol/L (21-32); CHLORIDE 89 mmol/L (98-107); CREATININE, SERUM 6.06 mg/dL (0.70-1.30); GLOMERULAR FILTRATION RATE,EST 10 mL/min (>60); INR 1.12 (0.80-1.30); MAGNESIUM 1.9 mg/dL (1.8-2.4); POTASSIUM 3.3 mmol/L (3.5-5.1); PROTIME 14.3 Sec (11.2-14.2); UREA NITROGEN 86 mg/dL (7-18)
[2024-10-27 15:05] LABS: WHITE BLOOD CELLS, URINE >50 /HPF (0-5)
[2024-10-27 15:07] LABS: BACTERIA, URINE 3+ /hpf (negative); CASTS, URINE NONE SEEN \\lpf; COLLECTION TYPE, URINE CLEAN CATCH; CRYSTALS, URINE NONE SEEN (0-1+); EPITHELIAL CELLS, URINE 0 /lpf (0-1+); RED BLOOD CELLS, URINE 0-1 /hpf (0-5); REFLEX CULTURE, URINE Yes (No)
[2024-10-27] MEDS ORDERED: CEFTRIAXONE/SODIUM CHLORIDE 2 GM/100 ML PIGGYBACK IV ONE (15:15)
[2024-10-27] MEDS ORDERED: metroNIDAZOLE/SODIUM CHLORIDE 500 MG/100 ML PIGGYBACK IV ONE (15:15)
[2024-10-27 15:20] LABS: LACTIC ACID, BLOOD 1.4 mmol/L (0.4-2.0)
[2024-10-27 15:23] LABS: PH, VENOUS 7.236 (7.31-7.41)
[2024-10-27 15:33] LABS: INFLUENZA B NAA NEGATIVE (NEGATIVE); RESPIRATORY SYNCYTIAL VIR NAA NEGATIVE (NEGATIVE)
[2024-10-27 16:11] LABS: HEMATOCRIT 32.8 % (35.0-50.0); MCH 31.9 (27-36); MCHC 33.4 g/dl (30-36); MCV 95.3 fl (81-99); PLATELET COUNT 223 K/uL (140-440); RBC 3.44 M/ul (4.3-5.7); RDW 16.1 (10.5-15.0)
[2024-10-27 16:25] LABS: LYMPHOCYTES, MANUAL DIFF 10; MONOCYTES, MANUAL DIFF 2; NEUTROPHILS, MANUAL DIFF 88
[2024-10-27 16:26] LABS: ALBUMIN 2.1 g/dL (3.4-5.0); ALBUMIN/GLOBULIN RATIO 0.39 (1.1-2.4); ANION GAP 24.1 (7-21); BILIRUBIN, TOTAL 0.5 ng/dL (0.2-1.0); BUN/CREATININE RATIO 15.31 (6.0-28.6); CREATININE, SERUM 5.42 mg/dL (0.70-1.30); POTASSIUM 3.1 mmol/L (3.5-5.1); PROTEIN, TOTAL 7.5 g/dL (6.4-8.2)
[2024-10-27] MEDS ORDERED: DEXTROSE 5% - LACTATED RINGERS 1,000 ML IV SCH (18:45)
[2024-10-27] MEDS ORDERED: ACETAMINOPHEN 325 MG TAB PO PRN (18:45)
[2024-10-27] MEDS ORDERED: PROCHLORPERAZINE EDISYLATE 10 MG/2 ML VIAL IV PRN (18:45)
[2024-10-27] MEDS ORDERED: POTASSIUM CHLORIDE 40 MEQ,LIDOCAINE HCL 1% 40 MG in DEXTROSE 5% 250 ML IV ONE (18:45)
[2024-10-27] MEDS ORDERED: ondansetron HCL 4 MG/2 ML VIAL IV PRN (18:45)
--- NOTE | 2024-10-27 19:05 | NUR ---
patient arrived to CCU room 130 via stretcher. handoff report received from ER nurse. patient at bedside.
[2024-10-27 19:12] VITALS: BP 94/58
[2024-10-27 20:00] VITALS: BP 113/99
[2024-10-27] MEDS ORDERED: POTASSIUM CHLORIDE 10 MEQ/100 ML BAG IV SCH (20:00)
--- NOTE | 2024-10-27 20:05 | NUR ---
PATIENT ALERT AND ORIENTED, ABLE TO FOLLOW COMMANDS AND ANSWERS QUESTIONS APPROPRIATELY. PATIENT REMAINS ON ROOM AIR, SOB AT TIMES, RR RANGING FROM 20-40'S. PATIENT HAS PRODUCTIVE COUGH, WITH THICK BROWN SPUTUM. PATIENT REMAINS AFEBRILE. PATIENT IV SITES WNL. PATIENT REMAINS AT BEDSIDE. CALL LIGHT WITHIN REACH.
[2024-10-27 20:15] LABS: ANION GAP 25.2 (7-21); BUN/CREATININE RATIO 15.96 (6.0-28.6); CALCIUM 7.3 mg/dL (8.5-10.1); CREATININE, SERUM 5.26 mg/dL (0.70-1.30); POTASSIUM 3.2 mmol/L (3.5-5.1)
[2024-10-27 20:30] VITALS: BP 100/68
--- NOTE | 2024-10-27 20:46 | EKG ---
[facility] [address] [place] [address] Signed Normal sinus rhythm Minimal voltage criteria for LVH, may be normal variant ( R in aVL ) Borderline ECG When compared with ECG of 29-AUG-2022 02:26, Nonspecific T wave abnormality now evident in Inferior leads Confirmed by Raine Hardy MD () on 10/27/2024 8:46:29 PM Electronically Signed By: RAINE HARDY MD 10/27/242045 PATIENT NAME: ABDIRASHID LOPEZ Electrocardiogram DATE OF : 56 PHYSICIAN: RAINE HARDY MD REPORT #: [id number] REPORT IS CONFIDENTIAL AND NOT TO BE RELEASED WITHOUT AUTHORIZATION
[2024-10-27 21:00] VITALS: BP 120/103
[2024-10-27] MEDS ORDERED: LORazepam 2 MG/ML VIAL IV/IM PRN (21:00)
[2024-10-27] MEDS ORDERED: AZITHROMYCIN 500 MG in DEXTROSE 5% 250 ML IV SCH (21:00)
[2024-10-27] MEDS ORDERED: MELATONIN 3 MG TAB PO PRN (21:00)
[2024-10-27] MEDS ORDERED: OSELTAMIVIR PHOSPHATE 30 MG CAP PO SCH (21:00)
[2024-10-27] MEDS ORDERED: LORazepam 1 MG TAB PO PRN (21:00)
[2024-10-27] MEDS ORDERED: guaiFENesin 600 MG TABCR PO PRN (21:15)
[2024-10-27] MEDS ORDERED: BENZONATATE 100 MG CAP PO PRN (21:15)
[2024-10-27] MEDS ORDERED: DEXTROSE 5% 1,000 ML IV SCH (21:30)
--- NOTE | 2024-10-27 21:30 | NUR ---
DOCTOR UPDATED ON PATIENT
[2024-10-27] MEDS ORDERED: AZITHROMYCIN 500 MG VIAL ONE (21:31)
[2024-10-27 22:00] VITALS: BP 97/64
--- NOTE | 2024-10-27 22:50 | NUR ---
patient RR continues to be 20-45. patient reports feeling SOB at times. patient SPO2 in the low 90's. patient continues to have productive cough. call light within reach. remains at bedside.
[2024-10-27 23:00] VITALS: BP 122/81
--- NOTE | 2024-10-27 23:07 | NUR ---
patient CIWA score of 10, PRN ativan given. patient reports he cant get comfortable and fall asleep. patient repositioned in bed. patient oxygen saturation drops as low as 84%, patient placed on 3L NC. RT in room to see patient.
[2024-10-28] VITALS (49 sets, daily range): BP systolic 63–165; BP diastolic 49–130
--- NOTE | 2024-10-28 00:06 | NUR ---
PATIENT INCONT OF STOOL. PATIENTS BEDDING CHANGED. PATIENT IS NOW HALLUCINATING. CIWA NOTED TO BE 14. PRIMARY RN IN ROOM TO EVAL PATIENT. LAB IN ROOM TO DRAW BLOOD. NO ATIVAN GIVEN AT THIS TIME DUE TO SOFT BP. PATIENT IS ON 3L VIA NC. PATIENT IS NOTED TO BE MAKING A GRUNTING SOUND BUT DENIES ANY SOB. RT IN TO EVAL PATIENT.
[2024-10-28 00:09] LABS: ANION GAP 23.3 (7-21); BUN/CREATININE RATIO 17.17 (6.0-28.6); CALCIUM 7.1 mg/dL (8.5-10.1); CREATININE, SERUM 4.89 mg/dL (0.70-1.30); POTASSIUM 3.3 mmol/L (3.5-5.1)
--- NOTE | 2024-10-28 00:15 | NUR ---
PATIENT CONTINUES TO HAVE RR 20-40'S. PATIENT WOB NOTED TO BE INCREASED, ON 3L NC, SPO2 IN LOW 90'S. PATIENT NOTED TO BE INCREASINGLY CONFUSED AND RESTLESS. PATIENT HAVING HALLUCINATIONS. RT IN ROOM TO EVALUATE PATIENT. PATIENT CONTINUES TO HAVE HARSH COUGH. BLOOD PRESSURE NOTED TO BE SOFT. THIS RN IN ROOM TO REASSESS, UNABLE TO OBTAIN ACCURATE BP READING DUE TO PATIENT RESTLESSNESS.
--- NOTE | 2024-10-28 00:20 | NUR ---
PLACED CALL TO MD TO UPDATE ON PATIENT STATUS. THIS RN REQUESTED MD TO COME TO BEDSIDE AND EVAL PATIENT. MD TO COME EVAL PATIENT.
--- NOTE | 2024-10-28 00:36 | NUR ---
DR HARDY IN TO ASSESS PATIENT
[2024-10-28] MEDS ORDERED: LACTATED RINGER'S 1,000 ML IV SCH ×2 (00:45→22:45)
[2024-10-28] MEDS ORDERED: PHENOBARBITAL SOD 130 MG/ML VIAL IV ONE (00:45)
[2024-10-28] MEDS ORDERED: NOREPINEPHRINE BITARTRATE 250 ML IV SCH (01:00)
[2024-10-28] MEDS ORDERED: PHENOBARBITAL SOD 130 MG/ML VIAL IV PRN ×2 (01:15→22:45)
--- NOTE | 2024-10-28 01:38 | NUR ---
PATIENT NOTED TO HAVE SOFT BP. PATIENT STARTED IN NOREPI DRIP PER ORDER. PATIENT IS RESTING IN BED WITH EYES CLOSED, RR 27. PATIENT REMAINS ON 3L VIA NC. BED ALARM ON FOR SAFETY.
--- NOTE | 2024-10-28 01:43 | NUR ---
NOREPI TITRATED PER PROTOCOL-SEE FLOWSHEET
--- NOTE | 2024-10-28 03:11 | NUR ---
PATIENT REMAINS ON NOREPINEPHRINE GTT AT 7 MCG/MIN. IV SITE WNL. PATIENT REMAINS ON 3L NC, SPO2 98%, RR 27. PATIENT CONTINUES TO HAVE OCCASIONAL HARSH COUGH. NO NEEDS AT THIS TIME. REMAINS AT BEDSIDE. CALL LIGHT IN REACH.
[2024-10-28 05:51] LABS: BASOPHILS 0.4 % (0-2); EOSINOPHILS 0.3 % (0-6); HEMATOCRIT 34.4 % (35.0-50.0); HEMOGLOBIN 11.7 g/dL (12.0-18.0); LYMPHOCYTES 2.7 % (24-44); MCH 32.6 (27-36); MCHC 33.9 g/dl (30-36); NEUTROPHILS 92.6 % (39-80); PH, VENOUS 7.185 (7.31-7.41); PLATELET COUNT 256 K/uL (140-440); RBC 3.59 M/ul (4.3-5.7); RDW 16.4 (10.5-15.0)
--- NOTE | 2024-10-28 06:30 | NUR ---
PATIENT NOREPINEPHRINE GTT TITRATED TO 5 MCG/MIN. PATIENT ON ROOM AIR, SPO2 96%, RR 25. PATIENT CONTINUES TO HAVE HARSH COUGH. PATIENT LINEN CHANGED AND REPOSITIONED IN BED. PATIENT CONTINUES TO HAVE GARBLED SPEECH, OPENS EYES FOR BRIEF SECOND WITH VERBAL STIMULI. PATIENT REMAINS AT BEDSIDE. CALL LIGHT WITHIN REACH.
[2024-10-28 06:31] LABS: ALBUMIN 1.9 g/dL (3.4-5.0); ALBUMIN/GLOBULIN RATIO 0.35 (1.1-2.4); ANION GAP 21.3 (7-21); BILIRUBIN, TOTAL 0.3 ng/dL (0.2-1.0); BUN/CREATININE RATIO 18.12 (6.0-28.6); CALCIUM 7.4 mg/dL (8.5-10.1); CREATININE, SERUM 4.58 mg/dL (0.70-1.30); MAGNESIUM 1.8 mg/dL (1.8-2.4); PHOSPHORUS, INORGANIC 7.4 mg/dL (2.5-4.9); POTASSIUM 3.3 mmol/L (3.5-5.1); PROTEIN, TOTAL 7.3 g/dL (6.4-8.2)
--- NOTE | 2024-10-28 07:30 | NUR ---
REPORT RECEIVED. PATIENT IS RESTING IN BED WITH HOB ELEVATED. RR-30, OCC GRUNTING SOUND. NOT FOLLOWING COMMANDS, WAS RECENTLY MEDICATED WITH PHENOBARB 65 MG. IVF INFUSING AT 125 ML/HR. PATIENT NOT ABLE TO TAKE PO AT THIS TIME. NOT FOLLOWING COMMANDS. WILL OPEN EYES BREIFLY WHEN TURNED.
--- NOTE | 2024-10-28 08:16 | NUR ---
UR CLINICAL REVIEW: 2MN MACHO- MEETS INPT FOR INFLUENZA A AND [facility]ICARE INPT CCU 10/27/24 @ 1837 ORDER MATCHES REG NO AUTH REQUIRED PER MEDICARE RULES DC PLAN PENDING FURTHER EVALUATION
[2024-10-28] MEDS ORDERED: POTASSIUM CHLORIDE 40 MEQ,LIDOCAINE HCL 1% 40 MG in DEXTROSE 5% 250 ML IV ONE ×2 (09:00→15:00)
[2024-10-28] MEDS ORDERED: PHENOBARBITAL SOD 130 MG/ML VIAL IV SCH (09:00)
[2024-10-28] MEDS ORDERED: THIAMINE HCL 500 MG in DEXTROSE 5% 100 ML IV SCH (09:00)
[2024-10-28] MEDS ORDERED: ENOXAPARIN SODIUM 30 MG/0.3 ML SYR SUB-Q SCH (09:00)
--- NOTE | 2024-10-28 09:11 | NUR ---
PHENOBARB 65 MG IV GIVEN ORDERED. K RIDER HANGING, THIAMINE INFSUING. LEVOPHED GTT INFUSING. TITRATIONS OF LEVOPHED GTT CHARTED ON FLOWSHEET. REMAINS ON [facility] PROTOCOL.
--- NOTE | 2024-10-28 09:45 | NUR ---
ATTEMPTED TO SEE PATIENT. PATIENT UNABLE TO BE SEEN FOR ASSESSMENT. WILL CHECK BACK AT A LATER TIME.
[2024-10-28 10:47] LABS: ANION GAP 22.3 (7-21); BUN/CREATININE RATIO 20.56 (6.0-28.6); CALCIUM 7.5 mg/dL (8.5-10.1); CREATININE, SERUM 4.23 mg/dL (0.70-1.30); POTASSIUM 3.3 mmol/L (3.5-5.1)
--- NOTE | 2024-10-28 11:37 | NUR ---
PT NOT AVAILABLE FOR VISIT. PROVIDED PRAYER.
[2024-10-28] MEDS ORDERED: CEFTRIAXONE/SODIUM CHLORIDE 2 GM/100 ML PIGGYBACK IV SCH (12:00)
[2024-10-28] MEDS ORDERED: PHARMACY RENAL DOSE ADJUSTMENT 1 DOSE MISC PO SCH (12:00)
[2024-10-28] MEDS ORDERED: ALBUTEROL/IPRATROPIUM 3 ML NEB INH PRN (12:30)
--- NOTE | 2024-10-28 13:40 | NUR ---
RT IN ROOM WORKING WITH PATIENT. VEST THERAPY ON, RT WILL GIVE NEB TREATMENT AND EVALUATE PATIENT. PATIENT HAS OCC PRODUCTIVE COUGH. INCREASE COUGH WHEN MOVING PATIENT. ORAL CARE GIVEN.
--- NOTE | 2024-10-28 14:00 | NUR ---
LABS DRAWN. INCONT OF URINE AND STOOL. ATTENDS CHANGED. PATIENT IS MORE ALERT AND TRYING TO FOLLOW SOME COMMANDS. RESP RATE VARIES BETWEEN 26-40.
[2024-10-28 14:13] LABS: PH, VENOUS 7.255 (7.31-7.41)
[2024-10-28 14:27] LABS: ANION GAP 22.4 (7-21); BUN/CREATININE RATIO 22.4 (6.0-28.6); CALCIUM 7.7 mg/dL (8.5-10.1); CREATININE, SERUM 3.66 mg/dL (0.70-1.30); POTASSIUM 3.4 mmol/L (3.5-5.1)
[2024-10-28] MEDS ORDERED: LIDOCAINE 2% VISCOUS 6 ML SYR TOP ONE (14:45)
--- NOTE | 2024-10-28 14:59 | NUR ---
REMAINS ON LEVOPHED GTT AT 2 MCG/MIN. IVF INFUSING AT 125 ML/HR. DR. HARDY AWARE OF LABS AND WILLHANGE IVF TO D5W DUE TO RISE IN NA. PATIENT IS SOMEWHAT RESTLESS. S.O. IN ROOM AND BED ALARM IS ON.
[2024-10-28] MEDS ORDERED: DEXTROSE 5% 1,000 ML IV SCH (15:00)
--- NOTE | 2024-10-28 15:30 | NUR ---
CIWA-12, ATIVAN 1 MG IV GIVEN. PITTMAN CATH PLACED W/O DIFFICULTY FOR RETURN OF 550 ML CLOUDY YELLOW URINE.
[2024-10-28] MEDS ORDERED: HYDROXYZINE PAM25 MG PO (15:54)
--- NOTE | 2024-10-28 15:55 | NUR ---
DR. HARDY AWARE OF FEVER OF 101.2 AX ORDERS FOR TORDOL RECEIVED.
[2024-10-28] MEDS ORDERED: [UNRECOGNIZED DRUG - OTHER] TOP (15:56)
--- NOTE | 2024-10-28 15:59 | NUR ---
PATIENT IS RESTLESS. LEVOPHED GTT AT 1 MCG/MIN, K RIDER 40 MEQ INFUSING , D5W INFUSING.
[2024-10-28] MEDS ORDERED: KETOROLAC TROMETHAMINE 15 MG/ML VIAL IV PRN (16:00)
--- NOTE | 2024-10-28 16:38 | NUR ---
ATIVAN 1 MG IV REPEATED FOR CIWA OF 9.
[2024-10-28] MEDS ORDERED: WELLBUTRIN XL150 MG PO (16:42)
[2024-10-28] MEDS ORDERED: CLONIDINE HCL0.1 MG PO (16:42)
[2024-10-28] MEDS ORDERED: BETAMETHASONE V60 ML TOP (16:43)
--- NOTE | 2024-10-28 16:43 | NUR ---
MED REC COMPLETE
--- NOTE | 2024-10-28 17:30 | NUR ---
DR. HARDY AWARE OF POSITIVE BLOOD CULTURES. NO FURTHER ORDERS AT THIS TIME.
[2024-10-28 18:10] LABS: PH, VENOUS 7.318 (7.31-7.41)
[2024-10-28 18:22] LABS: ANION GAP 19.3 (7-21); BUN/CREATININE RATIO 23.91 (6.0-28.6); CALCIUM 7.6 mg/dL (8.5-10.1); CREATININE, SERUM 3.47 mg/dL (0.70-1.30); POTASSIUM 3.3 mmol/L (3.5-5.1)
--- NOTE | 2024-10-28 19:40 | NUR ---
HANDOFF REPORT RECEIVED FROM DAY SHIFT RN. PATIENT RESTING IN BED WITH HOB ELEVATED. PATIENT REMAINS ON 2L NC, SPO2 100%, RR 22. FAMILY AT BEDSIDE. NO NEEDS AT THIS TIME.
--- NOTE | 2024-10-28 20:18 | NUR ---
NOREPINEPHRINE GTT TURNED OFF PER MEDICATION FLOWSHEET. PATIENT IV SITE WNL. PATIENT SIGNIFICANT OTHER REMAINS AT BEDSIDE, NO NEEDS AT THIS TIME.
[2024-10-28 22:25] LABS: ANION GAP 20.3 (7-21); BUN/CREATININE RATIO 24.09 (6.0-28.6); CALCIUM 7.9 mg/dL (8.5-10.1); CREATININE, SERUM 3.32 mg/dL (0.70-1.30); POTASSIUM 3.3 mmol/L (3.5-5.1)
--- NOTE | 2024-10-28 22:55 | NUR ---
PATIENT REPOSITIONED IN BED. PITTMAN CARE PROVIDED. PATIENT REMAINS OFF LEVOPHED GTT, BP STABLE. LR INFUSING AT 125 ML/HR, IV SITE WNL. PATIENT CONTINUES TO HAVE OCCASIONAL NON PRODUCTIVE COUGH. PATIENT ABLE TO FOLLOW SOME COMMANDS, SPEECH REMAINS GARBLED AND HARD TO UNDERSTAND. PITTMAN CATH INTACT. PATIENT SIGNIFICANT OTHER REMAINS AT BEDSIDE. NO NEEDS AT THIS TIME. CALL LIGHT IN REACH.
[2024-10-29] VITALS (21 sets, daily range): BP systolic 91–145; BP diastolic 63–108
--- NOTE | 2024-10-29 00:20 | NUR ---
CIWA SCORE OF 10. PRN ATIVAN GIVEN PER EMAR.
--- NOTE | 2024-10-29 01:05 | NUR ---
PATIENT PULLS OFF GOWN AND ATTEMPTS TO GET OUT OF BED. PATIENT INCREASINGLY MORE RESTLESS. PATIENT CONTINUES TO BE CONFUSED, THIS RN ATTEMPT TO REORIENT. CIWA SCORE OF 15. PRN PHENOBARBITAL GIVEN PER EMAR.
--- NOTE | 2024-10-29 02:15 | NUR ---
PATIENT REPORTS FEELING NAUSEOUS. COLD WASH CLOTH APPLIED TO BACK OF NECK AND PRN ZOFRAN GIVEN PER EMAR.
[2024-10-29 02:21] LABS: ANION GAP 19.5 (7-21); BUN/CREATININE RATIO 24.38 (6.0-28.6); CALCIUM 7.9 mg/dL (8.5-10.1); CREATININE, SERUM 3.24 mg/dL (0.70-1.30); POTASSIUM 3.5 mmol/L (3.5-5.1)
--- NOTE | 2024-10-29 02:26 | NUR ---
CIWA SCORE OF 13. PRN ATIVAN GIVEN PER EMAR
--- NOTE | 2024-10-29 02:40 | NUR ---
DR HARDY CALLED AND UPDATED ON PATIENT AND LAB RESULTS. NEW ORDERS RECEIVED PER EMAR.
[2024-10-29] MEDS ORDERED: PHENOBARBITAL SOD 130 MG/ML VIAL IV PRN ×2 (03:00→16:00)
[2024-10-29] MEDS ORDERED: DEXTROSE 5% 1,000 ML IV SCH (03:00)
--- NOTE | 2024-10-29 03:48 | NUR ---
PATIENT CONTINUES TO BE RESTLESS, TAKING GOWN OFF, ATTEMPTS TO GET OUT OF BED, AND PULLING AT PITTMAN CATHETER. PATIENT TREMULOUS AND REPORTS FEELING NAUSEOUS. PATIENT HALLUCINATING AND CONTINUES TO HAVE GARBLED SPEECH. PATIENT TACHYCARDIC AND RR HIGH 36. PATIENT CIWA SCORE OF 18. PRN PHENOBARBITAL AND COMPAZINE GIVEN PER EMAR.
--- NOTE | 2024-10-29 04:40 | NUR ---
PATIENT RESTING IN BED WITH EYES CLOSED, RR 25. PATIENT CIWA SCORE OF 6, NO INTERVENTIONS AT THIS TIME. PATIENT CONTINUES TO HAVE OCCASIONAL COUGH. PATIENT REPOSITIONED IN BED. PITTMAN CATH INTACT. IVF INFUSING PER EMAR. NO NEEDS AT THIS TIME.
[2024-10-29 06:21] LABS: PH, VENOUS 7.229 (7.31-7.41)
[2024-10-29 06:24] LABS: BASOPHILS 0.2 % (0-2); EOSINOPHILS 0.1 % (0-6); HEMATOCRIT 32.5 % (35.0-50.0); HEMOGLOBIN 11.2 g/dL (12.0-18.0); LYMPHOCYTES 4.7 % (24-44); MCH 32.7 (27-36); MCHC 34.6 g/dl (30-36); MCV 94.4 fl (81-99); MONOCYTES 5.2 % (0-12); NEUTROPHILS 89.8 % (39-80); PLATELET COUNT 255 K/uL (140-440); RBC 3.44 M/ul (4.3-5.7); RDW 16.6 (10.5-15.0)
[2024-10-29 06:42] LABS: ALBUMIN 1.8 g/dL (3.4-5.0); ALBUMIN/GLOBULIN RATIO 0.33 (1.1-2.4); ANION GAP 19.5 (7-21); BILIRUBIN, TOTAL 0.4 ng/dL (0.2-1.0); BUN/CREATININE RATIO 24.05 (6.0-28.6); CALCIUM 7.8 mg/dL (8.5-10.1); CREATININE, SERUM 2.91 mg/dL (0.70-1.30); POTASSIUM 3.5 mmol/L (3.5-5.1); PROTEIN, TOTAL 7.2 g/dL (6.4-8.2)
--- NOTE | 2024-10-29 06:50 | NUR ---
DOCTOR ANTONY CALLED AND UPDATED ON PATIENT 100.3 TEMP. NEW ORDER RECEIVED- SEE EMAR.
[2024-10-29] MEDS ORDERED: ACETAMINOPHEN 650 MG SUPP PR PRN (07:15)
[2024-10-29] MEDS ORDERED: ALBUTEROL SULFATE 0.083% 3 ML VIAL INH PRN (07:30)
--- NOTE | 2024-10-29 07:30 | NUR ---
REPORT RECIEVED FROM PETROGRAPHY TEACHER RN. PATIENT IN ROOM 130 IN BED WITH HIS SIGNIFICANT OTHER AT THE BEDSIDE. PATIENT IS ON RA THIS AM. RT IS IN AT THE BEDSIDE.
--- NOTE | 2024-10-29 07:45 | NUR ---
THIS RN AND STUDENT RN IN TO SEE PATIENT AFTER RT CALLED PROVIDER AND HAD HIM COME TO THE BEDSIDE. PATIENT NOTED TO BE SNORING AND RR LABORED AND LAB RESULTS REVIEWED WITH PROVIDER. PATIENT MOVED TO ROOM 129 FOR CLOSER OBSERVATION AND BIPAP MASK APPLIED. PATIENT SLIGHTLY RESTLESS AND REMAINS CONFUSED, BUT IS TOLERATING MASK AT THIS TIME. FAMILY UPDATED ON PLAN OF CARE. WILL DO SERIAL LABS FOR CLOSER OBSERVATION.
[2024-10-29] MEDS ORDERED: LACTATED RINGER'S 1,000 ML IV SCH (08:15)
--- NOTE | 2024-10-29 09:00 | NUR ---
STOPPED IN THE HOYT BY PATIENT GIRLFRIEND ASHLEIGH CARDENAS. GIRLFRIEND IS IN CHART A PERSON OF CONTACT. SHE STATES PATIENT LIVES AT [facility] IN A TRAILER HE BOUGHT WITH HIS SON JOSEPHINE LOPEZ. 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 PATIENT USED TO GET FOOD STAMPS BUT MAKES TO MUCH MONEY NOW. HE GETS COMMODITIES FROMT [facility] [place] [facility]. SHE DENIES HE HAS DIFFICULTY PAYING UTILITIES. HE DOES NOT DRIVE. HE DOES NOT HAVE ANY DME AT HOME. PATIENT SEES DR. KNUTSON AT [facility] FOR PCP. WILL ATTEMPT TO TALK TO GINA LOPEZ TODAY FOR MORE INFORMATION. PATIENT MEDICATED AND UNABLE TO DO FULL ASSESSMENT AT THIS TIME.
[2024-10-29] MEDS ORDERED: PHENOBARBITAL SOD 130 MG/ML VIAL IV SCH (09:11)
--- NOTE | 2024-10-29 09:23 | NUR ---
DECREASED O2 TO 30%.
[2024-10-29 09:57] LABS: PH, VENOUS 7.367 (7.31-7.41)
--- NOTE | 2024-10-29 10:00 | NUR ---
PATIENT ON BIPAP MORE RESTLESS AT THIS TIME. PATIENT WEARING BIPAP AND OCC. COUGHING NOTED. PATIENTS AT THE BEDSIDE. MD HAS BEEN IN TO SEE PATIENT.
[2024-10-29 10:09] LABS: ANION GAP 18.1 (7-21); BUN/CREATININE RATIO 26.87 (6.0-28.6); CALCIUM 7.8 mg/dL (8.5-10.1); CREATININE, SERUM 2.53 mg/dL (0.70-1.30); POTASSIUM 3.1 mmol/L (3.5-5.1)
[2024-10-29] MEDS ORDERED: POTASSIUM CHLORIDE 40 MEQ,LIDOCAINE HCL 1% 40 MG in DEXTROSE 5% 250 ML IV ONE (10:15)
[2024-10-29] MEDS ORDERED: metroNIDAZOLE/SODIUM CHLORIDE 500 MG/100 ML PIGGYBACK IV SCH (10:15)
--- NOTE | 2024-10-29 10:30 | NUR ---
PATIENT IS MORE RESTFULL AT THIS TIME. SPOKE WITH PROVIDER AND PER MD HOLD SCHEDULED PHENOBARB AND ORDER IT A PRN. PATIENT RASS IS A -1 AT THIS TIME. FAMILY AT THE BEDSIDE. BED ALARM ON. CURTAIN OPEN FOR PATIENTS SAFETY.
--- NOTE | 2024-10-29 11:55 | NUR ---
SPOKE WITH DAUGHTER AND NIECE. PATIENT UNABLE TO SPEAK AT THIS TIME. LETHARGIC AND ON BIPAP. PATIENT LIVES IN AN RV WITH HIS SON AND HIS SON'S GIRLFRIEND. APPARENTLY THIS SITUATION HAS BEEN STRESSFUL FOR PATIENT AND HE HAS BEGAN DRINKING AFTER EXITING DETOX 2 MONTHS AGO. HE HAS NO RUNNING WATER OR HEAT IN HIS RV. HE WALKS TO BUSINESSES WHEN HE NEEDS TO USE THE BATHROOM. DAUGHTER HAS PREVIOUSLY PAID FOR A HOTEL FOR PATIENT SO HE CAN SHOWER AND HAVE HEAT BUT IT IS TOO EXPENSIVE FOR HER TO CONTINUE TO PAY FOR HOTEL ROOMS. THE FAMILY STATES HE HAS REACHED OUT TO [facility] FOR ASSISTANCE WITH REPAIRS TO THE RV. THE FAMILY IS CURRENTLY CALLING INTO THE [facility] [place] FOR FURTHER HOUSING ASSISTANCE FOR PATIENT WHEN HE IS DISCHARGED. HE DOES NOT DRIVE. HE ALSO HAS NO DME. PATIENT HAS HAD MULTIPLE INPATIENT REHAB VISITS OVER THE YEARS. INPATIENT DETOX STAY IN AUGUST OF 2024. 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 HIS FAMILY MEMBERS BELIEVE HIS PEER IS RIANA. HIS ADDRESS IS [address] [place] [address]. WILL INFORM ADMITTING OF ADDRESS AND PHONE NUMBER UPDATE [phone].
[2024-10-29] MEDS ORDERED: ALBUTEROL/IPRATROPIUM 3 ML NEB INH PRN (12:00)
--- NOTE | 2024-10-29 12:19 | NUR ---
O2 TITRATED TO 21%.
--- NOTE | 2024-10-29 12:30 | NUR ---
PATIENT ON BIPAP AND TOLERATING WELL. PATIENT FAMILY AT THE BEDSIDE AND UPDATED ON PLAN OF CARE BY CASE MANAGEMENT. PATIENT OCCASIOANL WAKENS AND TOUCHES HIS FACE, BUT NOT ATEMPTING TO REMOVE BIPAP AT THIS TIME.
[2024-10-29 14:02] LABS: PH, VENOUS 7.362 (7.31-7.41)
[2024-10-29 14:16] LABS: ANION GAP 15.3 (7-21); BUN/CREATININE RATIO 28.15 (6.0-28.6); CALCIUM 7.8 mg/dL (8.5-10.1); CREATININE, SERUM 2.38 mg/dL (0.70-1.30); POTASSIUM 3.3 mmol/L (3.5-5.1)
--- NOTE | 2024-10-29 14:50 | NUR ---
PATIENT HAS BEEN RESTING WELL FOR PAST SEVERAL HOURS. MD IS AWARE THAT PATIENT HAS BEEN RESTING. PATIENT DOES GROAN WHEN STAFF STATE HIS NAME, AND SOMETHIMES OPENS HIS EYEYS AND REACHES AT BIPAP MASK. PATIENT DID NOT SLEEP WELL LAST NIGHT. NO TREMORS NOTED. PATIENT HAS OCC. COUGH. FAMILY AT THE BEDSIDE.
--- NOTE | 2024-10-29 15:30 | NUR ---
PARVIZ NOTIFIED OF URINE CULTURES. PATIENT MORE AWARE AND ON VAPOTHERM AT THIS TIME. MD IN TO SEE PATIENT. LABS AT 1800. PATIENT NOTED TO HAVE SOME BLOOD SPUTUM. MD VIEWED. NO OTHER CHANGES AT THIS TIME.
--- NOTE | 2024-10-29 16:00 | NUR ---
THIS RN AND STUDENT RN IN TO DO BED BATH. PATIENT LINEN CHANGED, PATIENT CLEANED WITH CHLORHEXIDINE WIPES AND PITTMAN CATH CARE PROVIDED PER PARAMATERS. PATENT ORAL CARE PROVIDED. FACE CLEANED AND SHAMPOO CAP DONE. PATIENT IS ALERT TO NAME AND FOLLWING COMMANDS. PATIENT HAD A SIP OF WATER WITH NO ISSUES. VAPOTHERM ON AND PATIENTS RR EVEN AND UNLABORED AT 28BPM.
--- NOTE | 2024-10-29 16:36 | NUR ---
BIPAP OFF AT 15:41 PLACED ON HFNC AT 40L AND 21%.
--- NOTE | 2024-10-29 16:38 | NUR ---
RT IN WORKING WITH PATIENT. PATIENT DOING NEB AND CPT VEST AT THIS TIME. PATIENT FOLLOWING COMMANDS, BUT REAMISN CONFUSED. NO TREMORS NOTED. PATIENT ALERT TO NAME AND YEAR. WILL REORIENT NEEDED.
--- NOTE | 2024-10-29 17:30 | NUR ---
PATIENT TO CT FOR EXAM WITH THIS RN, STUDENT RN, AND RT. PATIENT TOLERATED WELL AND WAS ABLE TO FOLLOW COMMANDS. PATIENT BACK TO ROOM. BED ALARM ON. PATIENTS OUT TO TAKE A BREAK.
[2024-10-29] MEDS ORDERED: ALBUTEROL/IPRATROPIUM 3 ML NEB INH SCH ×2 (18:00→20:00)
--- NOTE | 2024-10-29 19:30 | NUR ---
handoff report received from day shift RN. patient is resting in bed with significant other at bedside. patient has no needs at this time. patient bed alarm on, and curtain remains open. call light within reach.
--- NOTE | 2024-10-29 20:20 | NUR ---
PATIENT INCONTINENT OF STOOL. PATIENT LINEN CHANGED, NEW BRIEF PLACED, AND PITTMAN CARE PROVIDED. PATIENT MOVED TO NEGATIVE PRESSURE ROOM 128, TB PRECAUTIONS IN PLACE. PATIENT PITTMAN CATH INTACT. IV SITES WNL. PATIENT CONFUSED, RESTLESS AT TIMES, BUT ABLE TO FOLLOW COMMANDS. PATIENT REMAINS ON VAPOTHERM, OCASSIONAL PRODUCTIVE COUGH WITH BLOOD TINGED SPUTUM. SIGNIFICANT OTHER REMAINS AT BEDSIDE, AND UPDATED ON PLAN OF CARE. PATIENT BED ALARM ON AND CURTAIN REMAINS OPEN FOR SAFETY.
[2024-10-29 20:29] LABS: PH, VENOUS 7.359 (7.31-7.41)
[2024-10-29 20:40] LABS: ANION GAP 16.3 (7-21); BUN/CREATININE RATIO 27.39 (6.0-28.6); CALCIUM 8.3 mg/dL (8.5-10.1); CREATININE, SERUM 2.3 mg/dL (0.70-1.30); POTASSIUM 3.3 mmol/L (3.5-5.1)
[2024-10-29] MEDS ORDERED: MAGNESIUM SULFATE 2 GM/50 ML BAG IV SCH (21:00)
--- NOTE | 2024-10-29 23:29 | NUR ---
PLACED ON NIV FOR HS CHRISTA WELL WOB OK.
--- NOTE | 2024-10-29 23:40 | NUR ---
RT IN ROOM. BIPAP MASK PLACED ON PATIENT. PATIENT TOLERATING WELL AT THIS TIME. CURTAIN REMAINS OPEN FOR SAFETY AND DIRECT OBSERVATION. SIGNIFICANT OTHER REMAINS AT BEDSIDE.
[2024-10-30] VITALS (20 sets, daily range): BP systolic 98–161; BP diastolic 66–123
--- NOTE | 2024-10-30 00:45 | NUR ---
PATIENT TEMP OF 100.2. PRN TYLENOL SUPPOSITORY GIVEN PER EMAR. PATIENT INCONTINENT OF STOOL. NEW LINEN AND BRIEF PLACED, PITTMAN CARE PROVIDED. PATIENT REMAINS ON BIPAP, RR 23. PATIENT CIWA SCORE OF 6, NO INTERVENTIONS AT THIS TIME. PATIENT BED ALARM ON AND CURTAIN REMAINS OPEN FOR SAFETY. CALL LIGHT IN REACH.
--- NOTE | 2024-10-30 02:30 | NUR ---
PATIENT RESTING IN BED, RR 24. PATIENT REMAINS ON BIPAP, TOLERATING WELL. PATIENT PITTMAN CATH INTACT. IVF INFUSING PER EMAR, IV SITE WNL. NO NEEDS AT THIS TIME. PATIENT BED ALARM ON AND CURTAIN REMAINS OPEN FOR PATIENT SAFETY. SIGNIFICANT OTHER REMAINS AT BEDSIDE. NO NEEDS AT THIS TIME.
[2024-10-30 05:15] LABS: PH, VENOUS 7.397 (7.31-7.41)
[2024-10-30 05:20] LABS: BASOPHILS 0.2 % (0-2); EOSINOPHILS 0.4 % (0-6); HEMATOCRIT 29.9 % (35.0-50.0); HEMOGLOBIN 10.6 g/dL (12.0-18.0); LYMPHOCYTES 9.9 % (24-44); MCH 33.2 (27-36); MCHC 35.4 g/dl (30-36); MCV 93.8 fl (81-99); MONOCYTES 7.4 % (0-12); NEUTROPHILS 82.1 % (39-80); PLATELET COUNT 303 K/uL (140-440); RBC 3.19 M/ul (4.3-5.7); RDW 16.3 (10.5-15.0)
[2024-10-30 05:36] LABS: ALBUMIN 1.7 g/dL (3.4-5.0); ALBUMIN/GLOBULIN RATIO 0.34 (1.1-2.4); BILIRUBIN, TOTAL 0.4 ng/dL (0.2-1.0); CALCIUM 8.1 mg/dL (8.5-10.1); CREATININE, SERUM 1.84 mg/dL (0.70-1.30); PROTEIN, TOTAL 6.7 g/dL (6.4-8.2)
[2024-10-30 05:49] LABS: MAGNESIUM 2.3 mg/dL (1.8-2.4)
--- NOTE | 2024-10-30 06:20 | NUR ---
patient awake, alert and oriented. patient taken off BIPAP and placed on vapotherm 40L 21%. patient provided with sips of juice per request. patient states he feels much better this morning and asks when breakfast is. patient continues to have productive cough with thick brown/blood tinged sputum. patient repositioned in bed. follows commands and answers questions appropriately. patient asks for TV remote and searches through channels. patient updated on cares. has no needs at this time. call light in reach, bed alarm remains on.
--- NOTE | 2024-10-30 07:30 | NUR ---
REPORT RECEIVED. PATIENT NOW ON VAPOTHERM AT 40 LITERS, 21% FIO2. IVF PATENT.
--- NOTE | 2024-10-30 07:45 | NUR ---
AWAKE. STATES HE NEEDS TO HAVE A BM. OUT OF BED WITH ASSIST TO COMMODE. VERY WEAK AND UNSTEADY ON FEET. REQUIRES COMPLETE ASSISTANCE AND DIRECTION. EXPELLED 200 ML OF LIQUID GREEN STOOL. AFTER USING COMMODE, TRANSFERRED TO CHAIR FOR BREAKFAST. FED PATIENT OATMEAL, YOGART, ENSURE, MILK. TOLERATED WELL. DENIES NAUSEA. PATIENT TALKING AND IN COMPLETE SENTENCES. INCREASE SHORTNESS OF BREATH WITH EXERTION. HAS HARSH OCC PRODUCTIVE COUGH. SPUTUM IS CLEAR WITH STREAKS OF RED. ASSESSMENT DONE AFTER EATING. TALKED WITH PATIENT AND PATIENT S.O. ABOUT POC FOR THE DAY.
[2024-10-30] MEDS ORDERED: POTASSIUM CHLORIDE 40 MEQ,LIDOCAINE HCL 1% 40 MG in DEXTROSE 5% 250 ML IV ONE (08:30)
--- NOTE | 2024-10-30 08:30 | NUR ---
TOOK BREAKFAST WELL WITH ASSIST. TOLERATED WELL. DR. HARDY HERE TO SEE PATIENT. WHEN PATIENT FED, VAPOTHERM TO 20 L. THIS PER RT SUGGESTION. NO CHANGE IN WOB WITH LITERS DECREASED TO 20. DENIES PAIN. REMAINS IN CHAIR.
--- NOTE | 2024-10-30 08:40 | NUR ---
LITERS INCREASED TO 30.
--- NOTE | 2024-10-30 09:15 | NUR ---
DR HARDY IN TO SEE PT AND DISCUSS PLAN OF CARE FOR THE DAY/ANSWER QUESTIONS. PT CONT TO SIT UP AND EAT BREAKFAST.
--- NOTE | 2024-10-30 09:20 | NUR ---
TO COMMODE TO EXPELL LIQUID GREEN STOOL. MOST OF THE STOOL WAS INCONT, NOT ABLE TO MEASURE. BACK TO BED WITH ASSIST. AM CARES GIVEN. PITTMAN CATH IS PATENT WITH CLEAR YELLOW URINE NOTED. K RIDER INFUSING IVF INFUSING AT 125 ML/HR. THIAMINE WAS HUNG EARLIER.
--- NOTE | 2024-10-30 10:15 | NUR ---
PT CONT SITTING UP IN BED WORKING ON EATING HIS BREAKFAST. DENIES NAUSEA/PAIN, STATES HE IS TAKING IT SLOW.
--- NOTE | 2024-10-30 12:00 | NUR ---
SITTING UP IN BED READY TO EAT. ABLE TO FEED HIMSELF NOW. FAMILY MEMBERS ARE IN ROOM. CONTINUES WITH COUGH.
--- NOTE | 2024-10-30 12:30 | NUR ---
ASSESSMENT UNCHANGED. COOPERATIVE. NO S/S OF DT'S. TO COMMODE TO EXPELL LIQUID GREEN STOOL. THIS IS THE 3RD STOOL HE HAS HAD TODAY. BACK TO BED WITH ASSIST TO CONTINUE TO EAT LUNCH.
--- NOTE | 2024-10-30 13:00 | NUR ---
TOOK LUNCH WELL. FACE FLUSHED. TEMP 100. WILL CONTINUE TO MONITOR.
--- NOTE | 2024-10-30 14:38 | NUR ---
SLEEPING ON LEFT SIDE. IVF PATENT, PITTMAN CATH PATENT.
--- NOTE | 2024-10-30 15:30 | NUR ---
MOVED TO ROOM 130 VIA BED. REMAINS IN ISOLATION TO FLU+, R/O TB. PATIENT CONTINUES WITH PRODUCTIVE COUGH, NO RED STREAKS NOTED. PATIENT STATES HIS CHEST HURTS WITH COUGH. TEMP 100.7 AX. SKIN COLOR IS FLUSHED AND IS HOT TO TOUCH.
--- NOTE | 2024-10-30 15:45 | NUR ---
TYLENOL SUPP GIVEN FOR FEVER. PATIENT IS ASKING WHEN HE WILL GET TO GO HOME. TALKED WITH PATIENT ABOUT THIS. INDICATES UNDERSTANDING AT THIS TIME, S.O. WITH PATIENT. BED ALARM IS ON
--- NOTE | 2024-10-30 16:30 | NUR ---
NO CHANGES IN ASSESSMENT. HAS PRODUCTIVE COUGH. Kerrie JENSEN GIVEN EARLIER. DENIES PAIN. REMAINS ON RA W/O BIPAP OR VAPOTHERM
[2024-10-30 18:17] LABS: PH, VENOUS 7.422 (7.31-7.41)
--- NOTE | 2024-10-30 18:18 | NUR ---
VBG RESULTS, PH7.42,PCO2-20, PO2-68, BICARB-13.1. PATIENT IS DENIES NEEDS.
--- NOTE | 2024-10-30 19:45 | NUR ---
UP TO COMMODE TO EXPELL GREEN LIQUID STOOL. UNSTEADY ON FEET. BED LINES CHANGED STOOL ON LINES. BACK TO BED. REPORT GIVEN.
--- NOTE | 2024-10-30 20:00 | NUR ---
PATIENT AWAKE. ASSESSMENT COMPLETED; VITAL SIGNS TAKEN. PATIENT ABLE TO REPOSITION SELF IN BED WITHOUT ANY DIFFICULTY. BEDSIDE TABLE AND CALL LIGHT WITHIN REACH. PATIENT DENIED HAVING ANY PAIN AT THIS TIME.
--- NOTE | 2024-10-30 21:00 | NUR ---
PATIENT AWAKE AND ALERT; NURSE ADMINISTERED MEDS ORDERED; PATIENT COUGHING UP MODERATE AMOUNT OF THICK YELLOW, WHITE, RED STREAKED SPUTUM. O2 SATS REMAIN ABOVE 94%. NO RESPIRATORY DISTRESS NOTED. CALL LIGHT AND BEDSIDE TABLE WITHIN REACH.
[2024-10-30] MEDS ORDERED: hydrALAZINE HCL 20 MG/ML VIAL IV PRN (22:00)
[2024-10-31] VITALS (15 sets, daily range): BP systolic 124–182; BP diastolic 79–107
--- NOTE | 2024-10-31 | NUR ---
ASSESSMENT COMPLETED; VITAL SIGNS TAKEN; PATIENT DENIED HAVING ANY PAIN OR DISCOMFORT; CALL LIGHT AND BEDSIDE TABLE WITHIN REACH.
--- NOTE | 2024-10-31 04:00 | NUR ---
NURSE COMPLETED VITAL SIGNS AND ASSESSMENT; PATIENT AFEBRILE; PATIENT DENIES HAVING ANY PAIN OR DISCOMFORT; PATIENT O2 SATURATION REMAIN ABOVE 95%. NO RESPIRATORY DISTRESS NOTED. PATIENT REMAINS ON ROOM AIR. CALL LIGHT AND BEDSIDE TABLE WITHIN REACH.
--- NOTE | 2024-10-31 04:15 | NUR ---
PATIENT CALLED RN VIA CALL LIGHT. PATIENT REQUESTED TO USE BEDSIDE COMMODE. NURSE ASSISTED PATIENT ONTO BEDSIDE COMMODE. PATIENT A LITTLE UNSTEADY ON HIS FEET. PATIENT HAD MEDIUM LOOSE GREEN STOOL. NURSE ASSISTED PATIENT BACK TO BED AFTER TRISTEN CARE. CALL LIGHT AND BEDSIDE TABLE WITHIN REACH.
[2024-10-31 05:22] LABS: PH, VENOUS 7.461 (7.31-7.41)
[2024-10-31 05:23] LABS: BASOPHILS 0.2 % (0-2); EOSINOPHILS 1.7 % (0-6); HEMATOCRIT 27.5 % (35.0-50.0); HEMOGLOBIN 9.7 g/dL (12.0-18.0); LYMPHOCYTES 10.9 % (24-44); MCH 32.9 (27-36); MCHC 35.2 g/dl (30-36); MCV 93.5 fl (81-99); MONOCYTES 9.6 % (0-12); NEUTROPHILS 77.6 % (39-80); PLATELET COUNT 369 K/uL (140-440); RBC 2.94 M/ul (4.3-5.7); RDW 15.9 (10.5-15.0)
[2024-10-31 05:42] LABS: ALBUMIN 1.8 g/dL (3.4-5.0); ALBUMIN/GLOBULIN RATIO 0.38 (1.1-2.4); ANION GAP 14.3 (7-21); BILIRUBIN, TOTAL 0.5 ng/dL (0.2-1.0); CALCIUM 7.7 mg/dL (8.5-10.1); CREATININE, SERUM 1.3 mg/dL (0.70-1.30); POTASSIUM 3.3 mmol/L (3.5-5.1); PROTEIN, TOTAL 6.6 g/dL (6.4-8.2)
--- NOTE | 2024-10-31 06:00 | NUR ---
LAB RESULTS REPORTED TO DR. MELTON; K-3.3, CA++ 7.7; DR. MELTON ADVISED THAT HE WOULD ENTER NEW ORDERS MOMENTARILY.
--- NOTE | 2024-10-31 07:30 | NUR ---
report received. PATIENT IS AWAKE, RESTING. NO DISTRESS NOTED. IVF INFUSING.
--- NOTE | 2024-10-31 08:00 | NUR ---
ASSESSMENT DONE. DENIES PAIN OR NAUSEA. PATIENT STATES HE SLEPT POOR. IS TIRED. IVF INFUSING. PITTMAN CATH PATENT. TALKED WITH PATIENT ABOUT POC FOR THE DAY. POSSIBLE TO MED-SURG TODAY. SITTING UP IN BED FOR BREAKFAST.
--- NOTE | 2024-10-31 08:45 | NUR ---
TO COMMODE TO EXPELL LIQUID GREEN STOOL. THEN TO CHAIR. MOVING BETTER, REMIANS UNSTEADY ON FEET. CHAIR ALARM ON. WATCHING TV. IVF TO 75 ML/HR.
[2024-10-31] MEDS ORDERED: ENOXAPARIN SODIUM 40 MG/0.4 ML SYR SUB-Q SCH (09:00)
[2024-10-31] MEDS ORDERED: POTASSIUM CHLORIDE 40 MEQ,LIDOCAINE HCL 1% 40 MG in DEXTROSE 5% 250 ML IV ONE (09:00)
--- NOTE | 2024-10-31 09:38 | NUR ---
DR. HARDY HERE TO SEE PATIENT. PATIENT CONTINUES TO SIT IN CHAIR.
--- NOTE | 2024-10-31 11:06 | NUR ---
SLEEPING IN CHAIR. ORDERS RECEIVED TO TRANSFER TO MED-SURG. IVF INFUSING AND K RIDERS INFUSING. FAMILY MEMBERS ARE IN ROOM. CHAIR ALARM ON. WILL DC IVF. ZAIN REMAINS PATENT.
[2024-10-31] MEDS ORDERED: PHARMACY RENAL DOSE ADJUSTMENT 1 DOSE MISC PO SCH (12:00)
[2024-10-31] MEDS ORDERED: ACETAMINOPHEN 325 MG TAB ONE (13:26)
[2024-10-31] MEDS ORDERED: ACETAMINOPHEN 325 MG TAB PO PRN (14:00)
--- NOTE | 2024-10-31 14:00 | NUR ---
BACK TO BED. PATIENT WAS IN THE CHAIR FOR APPROX 4 HOURS. USING WALKER. BP-182/102. APRESOLINE 10 MG IV GIVEN. TYLENOL 650 MG PO GIVEN FO GOODWIN. TRYING TO REST. MONITOR DC'D. IS ON OXIMETER.
--- NOTE | 2024-10-31 17:00 | NUR ---
PT TRANSFERED TO ROOM 124 VIA BED WITH SIGNIFICANT OTHER AND ALL BELONGINGS - REPORT RECEIVED FROM CHADWICK HERNÁNDEZ. PT ORIENTED TO ROOM AND SET UP WITH DINNER TRAY AND REQUESTED ITEMS. CALL LIGHT IN REACH. VS STABLE, HTN NOTED, PRN AVAILABLE IN 1 HOUR. WILL CONTINUE TO MONITOR.
--- NOTE | 2024-10-31 18:56 | NUR ---
RN AND OYSTER GROWER IN ROOM TO CHANGE LINEN AFTER PT INC OF GREEN LIQUID STOOL. PT UP TO BATHROOM WITHOUT STAFF ASSISTANCE, BED ALARM NOW ON. WARM BLANKETS PROVIDED. VS STABLE, HTN IMPROVED. CALL LIGHT IN REACH, ON COUCH.
--- NOTE | 2024-10-31 19:15 | NUR ---
REPORT RECEIVED FROM TRES HERNÁNDEZ. BOARD UPDATED. pt RESTING IN THE BED. pt DENIES ANY OTHER NEEDS AT THIS TIME. CALL LIGHT WITHIN REACH.
[2024-10-31] MEDS ORDERED: ALBUTEROL/IPRATROPIUM 3 ML NEB INH SCH (20:00)
--- NOTE | 2024-10-31 21:00 | NUR ---
ASSESSMENT AND VITAL SIGNS DONE. pt UP TO THE BR. SBA WITH FWW. SCHEDULED MEDS ADMINISTERED. pt BACK TO BED. WATER REFRESHED. LUNGS SOUNDS CLEAR. pt DENIES ANY OTHER NEEDS AT THIS TIME. CALL LIGHT WITHIN REACH. IV ASSESSED, WNL.
--- NOTE | 2024-10-31 23:00 | NUR ---
pt CALLED TO USE THE BR. pt UP AND USED THE URINAL. pt BACK TO BED WITH THE ASSISTANCE OF THE SENIOR ELECTRONICS DESIGN ENGINEER. pt DENIES ANY OTHER NEEDS AT THIS TIME. CALL LIGHT WITHIN REACH.
[2024-11-01] VITALS (10 sets, daily range): BP systolic 148–170; BP diastolic 84–91
--- NOTE | 2024-11-01 01:45 | NUR ---
pt BED ALARM, ALARMING. pt STILL IN BED AND STATED HE HAD JUST USED THE URINAL. THIS RN REMINDED THE pt TO CALL NEXT TIME HE HAS TO USE THE URINAL. pt AGREED. BED ALARM ON. pt DENIES ANY OTHER NEEDS AT THIS TIME. CALL LIGHT WITHIN REACH.
--- NOTE | 2024-11-01 04:30 | NUR ---
BED ALARM, ALARMING. pt STATES HE HAS TO USE THE RESTROOM. THIS RN ASSISSTED pt TO THE BR. SBA WITH FWW. pt BACK TO BED. VS DONE. WATER REFRESHED. pt DENIES ANY OTHER NEEDS AT THIS TIME. CALL LIGHT WITHIN REACH.
--- NOTE | 2024-11-01 06:08 | NUR ---
IN RM FOR BEEPING IV. pt RESTING IN THE BED. WATER REFRESHED. pt DENIES ANY OTHER NEEDS AT THIS TIME. CALL LIGHT WITHIN REACH.
[2024-11-01 08:36] LABS: BASOPHILS 0.4 % (0-2); EOSINOPHILS 2.3 % (0-6); HEMATOCRIT 30.2 % (35.0-50.0); HEMOGLOBIN 10.2 g/dL (12.0-18.0); LYMPHOCYTES 13.3 % (24-44); MCH 32.2 (27-36); MCHC 33.9 g/dl (30-36); MONOCYTES 8.4 % (0-12); NEUTROPHILS 75.6 % (39-80); PLATELET COUNT 424 K/uL (140-440); RBC 3.18 M/ul (4.3-5.7); RDW 16.5 (10.5-15.0)
[2024-11-01 08:50] LABS: ANION GAP 15.5 (7-21); BUN/CREATININE RATIO 15.62 (6.0-28.6); CALCIUM 7.6 mg/dL (8.5-10.1); CREATININE, SERUM 0.96 mg/dL (0.70-1.30); POTASSIUM 3.5 mmol/L (3.5-5.1)
--- NOTE | 2024-11-01 08:50 | NUR ---
RN IN ROOM - AM ASSESSMENT COMPLETE. PT RESTING IN BED EATING BREAKFAST UPON ENTERING. PT REPORTS HE DID NOT SLEEP MUCH LAST NIGHT HE HAD HOPED, SEVERAL LOOSE BM'S KEEPING HIM AWAKE. PT AMBULATES UP TO BATHROOM TO AGAIN HAVE LIQUID GREEN STOOL. USING FWW PT IS IMPROVING IN STRENGTH, DOES NOT USE FWW APPROPRIATLY. PT BACK TO CHAIR, DYSPNEA NOTED AFTER AMBULATION. PT STATES HE DOES NOT FEEL LIKE THIS IS IMPROVING. LAB IN ROOM TO REDRAW MAG LEVEL. CALL LIGHT IN REACH, INSTRUCTED TO CALL BEFORE AMBULATING TO BATHROOM, SO ON COUCH STATES SHE WILL ALSO CALL.
[2024-11-01 08:52] LABS: MAGNESIUM 0.9 mg/dL (1.8-2.4)
--- NOTE | 2024-11-01 08:56 | NUR ---
PATIENT IN BED AT THIS TIME. SOURCING SPECIALIST WENT INTO PATIENTS ROOM FOR HOURLY ROUNDS. CALL LIGHT WITHIN REACH, NO FURTHER NEEDS AT THIS TIME.
--- NOTE | 2024-11-01 08:59 | NUR ---
CALL TO DR. CHAHAL THAT MG IS 0.9. LAB TO REDRAW LEVEL ORDERED.
--- NOTE | 2024-11-01 09:42 | NUR ---
NOTIFIED OF REPEAT MAG OF 1.0, VERBAL ORDER FOR 4G IV, ENTERED.
[2024-11-01] MEDS ORDERED: MAGNESIUM SULFATE 1 GM/2 ML VIAL IV ONE (09:45)
[2024-11-01] MEDS ORDERED: MAGNESIUM SULFATE 2 GM/50 ML BAG IV SCH (10:00)
--- NOTE | 2024-11-01 10:36 | NUR ---
OT IN ROOM TO EVAL PT
--- NOTE | 2024-11-01 12:03 | NUR ---
RN IN ROOM TO START SECOND MAG RIDER. RT IN ROOM FINISHING CHAI TX. PT UP IN CHAIR, DENIES NEEDS AT THIS TIME.
--- NOTE | 2024-11-01 14:00 | NUR ---
RN IN ROOM TO START ABX INFUSION. IV SITES PATENT. PT SITTING IN CHAIR WITHOUT COMPLAINTS. NO DYSPNEA NOTED. AT BEDSIDE, CALL LIGHT IN REACH.
--- NOTE | 2024-11-01 15:59 | NUR ---
PATIENT UP IN RECLINER. STATES HIS DC PLAN IS TO GO HOME WITH HIS GF AT [place]. WILL OBTAIN ADDRESS FOR PATIENT TO HAVE HOME HEALTH IN AM.
--- NOTE | 2024-11-01 17:00 | NUR ---
FAMILY IN ROOM PERFORMING MANZANITA PRAYER - PT NOT DISTURBED AT THIS TIME.
--- NOTE | 2024-11-01 18:39 | NUR ---
PATIENT IN BED AT THIS TIME. LOOM SETTER AND RN IN ROOM AT THIS TIME GETTING VITALS AND I&O'S. LOOM SETTER ASSISTED PATIENT IN GETTING FROM BED TO CHAIR. CALL LIGHT WITHIN REACH, NO FURTHER NEEDS AT THIS TIME.
--- NOTE | 2024-11-01 19:20 | NUR ---
REPORT RECEIVED FROM TRES HERNÁNDEZ. pt RESTING IN THE BED. BOARD UPDATED. NO NEEDS AT THIS TIME. CALL LIGHT WITHIN REACH.
[2024-11-01] MEDS ORDERED: OSELTAMIVIR PHOSPHATE 75 MG CAP PO SCH (21:00)
--- NOTE | 2024-11-01 21:50 | NUR ---
ASSESSMENT AND VITAL SIGNS DONE. pt RESTING IN THE BED. SCHEDULED MEDS ADMINISTERED. pt DENIES ANY OTHER NEEDS AT THIS TIME. CALL LIGHT WITHIN REACH. WATER REFRESHED.
--- NOTE | 2024-11-01 23:45 | NUR ---
BP CHECKED WITH A RESULTS OF 175/105. PRN HYDRALAZINE ADMINISTERED. pt DENIES ANY OTHER NEEDS AT THIS TIME. CALL LIGHT WITHIN REACH. STOOL SAMPLE SENT TO LAB.
[2024-11-02] VITALS (7 sets, daily range): BP systolic 135–168; BP diastolic 74–91
--- NOTE | 2024-11-02 02:55 | NUR ---
pt RESTING IN THE BED WITH EYES CLOSED. RR EVEN AND UNLABORED. CALL LIGHT WITHIN REACH.
[2024-11-02 05:32] LABS: EOSINOPHILS 3.7 % (0-6); HEMATOCRIT 29.7 % (35.0-50.0); HEMOGLOBIN 10.2 g/dL (12.0-18.0); LYMPHOCYTES 11.9 % (24-44); MCH 32.5 (27-36); MCHC 34.5 g/dl (30-36); MCV 94.1 fl (81-99); MONOCYTES 7.9 % (0-12); NEUTROPHILS 75.5 % (39-80); PLATELET COUNT 481 K/uL (140-440); RBC 3.16 M/ul (4.3-5.7); RDW 16.1 (10.5-15.0)
[2024-11-02 05:42] LABS: ANION GAP 13.5 (7-21); BUN/CREATININE RATIO 12.94 (6.0-28.6); CALCIUM 7.6 mg/dL (8.5-10.1); CREATININE, SERUM 0.85 mg/dL (0.70-1.30); MAGNESIUM 1.2 mg/dL (1.8-2.4); POTASSIUM 3.5 mmol/L (3.5-5.1)
--- NOTE | 2024-11-02 07:18 | NUR ---
REPORT FROM EDGAR LOPEZ.
--- NOTE | 2024-11-02 08:05 | NUR ---
PATIENT IN BED AT THIS TIME. COLLATOR HAND WENT INTO PATIENTS ROOM FOR HOURLY ROUNDS. CALL LIGHT WITHIN REACH, NO FURTHER NEEDS AT THIS TIME.
[2024-11-02] MEDS ORDERED: MAGNESIUM SULFATE 1 GM/2 ML VIAL IV ONE (08:15)
[2024-11-02] MEDS ORDERED: MAGNESIUM SULFATE 2 GM/50 ML BAG IV SCH (08:30)
--- NOTE | 2024-11-02 08:49 | NUR ---
MORNING ASSESSMENT IS COMPLETE. PATIENT DENIES PAIN, REPORTS OCCASIONAL COUGH. IS IN ROOM WITH PATIENT. 2G OF IV MG INFUSING FOR 1 HOUR. PATIENT IS EATING BREAKFAST, NO OTHER NEEDS AT THIS TIME.
--- NOTE | 2024-11-02 09:37 | NUR ---
SECOND MAG RIDER INFUSING FOR ONE HOUR.
--- NOTE | 2024-11-02 10:14 | NUR ---
PT NOT AVAILABLE FOR VISIT. PROVIDED PRAYER.
--- NOTE | 2024-11-02 10:29 | NUR ---
PATIENT IN BED AT THIS TIME. TRACE CLERK CHARTED VITALS AAND I&O'S. CALL LIGHT WITHIN REACH, NO FURTHER NEEDS AT THIS TIME.
--- NOTE | 2024-11-02 11:37 | NUR ---
PATIENT AND GIRLFRIEND IN ROOM. PATIENT STATES HE IS PLANNING TO GO TO A HOTEL "UNTIL MY TRAILER IS FIXED," THAT IS GOING TO BE PAID FOR BY [employer]. STATES AISHWARYA, HIS DAUGHTER, IS COORDINATING EVERYTHING. DOES NOT KNOW WHICH HOTEL HE IS GOING TO BE STAYING AT. GIRLFRIEND AGREES THAT THIS IS THE PLAN.
--- NOTE | 2024-11-02 12:49 | NUR ---
PATIENT UP TO CHAIR. PATIENT CONTINUES TO HAVE POOR APPETITE. AISHWARYA, PATIENT'S DAUGHTER BROUGHT PATIENT A CANE.
--- NOTE | 2024-11-02 14:03 | NUR ---
PATIENT IN BED AT THIS TIME. INTERSTATE PLANNER CHARTED VITALS AND I&O'S. CALL LIGHT WITHIN REACH, NO FURTHER NEEDS AT THIS TIME.
--- NOTE | 2024-11-02 14:13 | NUR ---
IV FLAGYL INFUSING FOR 1 HOUR. PATIENT DENIES OTHER NEEDS.
--- NOTE | 2024-11-02 16:36 | NUR ---
PATIENT IS SLEEPING IN CHAIR. IN ROOM.
[2024-11-02] MEDS ORDERED: AMOXICILLIN/CLAVULANATE K 875 MG TAB PO SCH (17:00)
--- NOTE | 2024-11-02 17:06 | NUR ---
PATIENT GIVEN PO ABX. NO OTHER NEEDS.
--- NOTE | 2024-11-02 19:03 | NUR ---
PATIENT IN BED AT THIS TIME. HAND COOPER HELPER CHARTED VITALS AND I&O'S. CALL LIGHT WITHIN REACH, NO FURHTER NEEDS AT THIS TIME.
--- NOTE | 2024-11-02 19:46 | NUR ---
REPORT RECEIVED FROM BERLIN HERNÁNDEZ. pt RESTING IN THE BED. BOARD UPDATED. pt DENIES ANY OTHER NEEDS AT THIS TIME. CALL LIGHT WITHIN REACH.
[2024-11-02] MEDS ORDERED: metroNIDAZOLE 250 MG TAB PO SCH (22:00)
--- NOTE | 2024-11-02 22:00 | NUR ---
ASSESSMENT AND VITAL SIGNS DONE. RIGHT LUNG HAS EXPIRATORY WHEEZES. SCHEDULED MEDS ADMINISTERD. pt DENIES ANY OTHER NEEDS AT THIS TIME. CALL LIGHT WITHIN REACH.
--- NOTE | 2024-11-03 00:16 | NUR ---
pt RESTING IN THE BED WITH EYES CLOSED. RR EVEN AND UNLABORED. CALL LIGHT WITHIN REACH.
--- NOTE | 2024-11-03 02:54 | NUR ---
pt RESTING IN THE BED WITH EYES CLOSED. RR EVEN AND UNLABORED. CALL LIGHT WITHIN REACH.
--- NOTE | 2024-11-03 04:12 | NUR ---
pt RESTING IN THE BED WITH EYES CLOSED. RR EVEN AND UNLABORED. CALL LIGHT WITHIN REACH.
[2024-11-03 05:16] VITALS: BP 125/84
[2024-11-03 05:20] VITALS: BP 125/84
[2024-11-03 05:58] LABS: ANION GAP 13.7 (7-21); BUN/CREATININE RATIO 10.97 (6.0-28.6); CALCIUM 7.6 mg/dL (8.5-10.1); CREATININE, SERUM 0.82 mg/dL (0.70-1.30); MAGNESIUM 1.2 mg/dL (1.8-2.4); PHOSPHORUS, INORGANIC 2.8 mg/dL (2.5-4.9); POTASSIUM 3.7 mmol/L (3.5-5.1)
--- NOTE | 2024-11-03 06:35 | NUR ---
pt RESTING IN THE BED. PO ABX ADMINISTERED. URINAL EMPTIED. pt DENIES ANY OTHER NEEDS AT THIS TIME. CALL LIGHT WITHIN REACH.
--- NOTE | 2024-11-03 08:27 | NUR ---
IV TO L) WRIST DC'D DUE TO INABILITY TO FLUSH. CATHETER INTACT AND PRESSURE HELD. DRSG APPLIED.
--- NOTE | 2024-11-03 08:44 | NUR ---
SBA to bathroom. Patient returned to bed, breakfast tray set up. Refused to sit in chair. Bed alarm reset.
[2024-11-03] MEDS ORDERED: MAGNESIUM SULFATE 2 GM/50 ML BAG IV SCH (09:00)
[2024-11-03 09:12] VITALS: BP 150/86
--- NOTE | 2024-11-03 09:28 | NUR ---
PATIENT ALERT IN BED. SIGNIFICANT OTHER IN ROOM. DISCUSS PROBABLY DC WITH PATIENT. SIGNS IMM LETTER, COPY PROVIDED. YESTERDAY STATED [facility] IS GOING TO PAY FOR HOTEL. WHILE IN ROOM, PATIENT INSTRUCTS SIGNIFICANT OTHER TO CALL HIS DAUGHTEERAISHWARYA, WHO WAS SETTING UP PLACE FOR HIM TO STAY. DISCUSSED OUTPATIENT PT AT [facility] WITH PATIENT. STATES HE WANTS TO "WAIT ON THAT." WILL SEND NOTES TO [facility] FOR OUTPATIENT PT REFERRAL FOR PATIENT. ALSO NOTIFIED HIM [facility] HAS TRANSPORTATION FOR APPOINTMENTS. DENIES OTHER CM NEEDS AT THIS TIME.
[2024-11-03] MEDS ORDERED: AMOX TR-K CLV1 EAC1 PO (10:12)
[2024-11-03] MEDS ORDERED: MAGOX 400400 MG PO (10:14)
[2024-11-03 10:30] VITALS: BP 147/86
--- NOTE | 2024-11-03 10:34 | NUR ---
RECEIVED CALL FROM AIHSWARYA, DAUGHTER. STATES [facility] HAS APPROVED HOTEL STAY FOR WHEN PATIENT IS DISCHARGED. STATES THEY HAVE NOT YET BOOKED ROOM. INFORMED AISHWARYA PATIENT IS BEING DISCHARGED AND HAS ORDERS TODAY AND IF HE CAN STAY WITH SOMEONE TONIGHT UNTIL HOTEL IS BOOKED, THAT COULD BE AN OPTION. PATIENT WANTS TO BE DISCHARGED TODAY. PHONE NUMBER FOR [employer] PROVIDED WELL FOR POTENTIAL ASSISTANCE IF NEEDED.
--- NOTE | 2024-11-03 10:58 | NUR ---
FACESHEET, H&P, DC SUMMARY, PT/OT NOTES FAXED TO [facility] WITH NOTE FOR NEED FOR OUPATIENT PT WELL TRANSPORTATION FOR THESE APPOINTMENTS.
--- NOTE | 2024-11-03 11:23 | NUR ---
PT RESTING IN BED WITH SIGNIFICANT OTHER AT BEDSIDE WATCHING TV. NO REQUESTS AT THIS TIME. CALL LIGHT WITHIN REACH.
--- NOTE | 2024-11-03 12:10 | NUR ---
IV pump alarm going off. EDGAR Angel notified.
[2024-11-03 12:37] VITALS: BP 147/86
== END 2024-11-03 13:00 | disposition home or self-care (01) | DRG 871 ==
LOC: ED 13:56 → CCU 18:43 → MS 18:43 → CCU 10-29 08:15 → MS 10-31 16:50
PROVIDERS: Emergency Medicine; Student in an Organized Health Care Education/Training Program; ADMIT Family Medicine; ATTEND Family Medicine
PROC: 3E03329 Introduction of Other Anti-infective into Peripheral Vein, Percutaneous Approach (ICD-10-PCS; principal; 2024-10-27)
PROC: 3E033XZ Introduction of Vasopressor into Peripheral Vein, Percutaneous Approach (ICD-10-PCS; 2024-10-27)
DX: A41.89 Other specified sepsis (principal); J10.01 Influenza due to other identified influenza virus with the same other identified influenza virus pneumonia; R65.21 Severe sepsis with septic shock; N39.0 Urinary tract infection, site not specified; N17.9 Acute kidney failure, unspecified; F10.239 Alcohol dependence with withdrawal, unspecified; E87.20 Acidosis, unspecified; E87.1 Hypo-osmolality and hyponatremia; R65.20 Severe sepsis without septic shock; E83.42 Hypomagnesemia; I10 Essential (primary) hypertension; L40.9 Psoriasis, unspecified; F17.210 Nicotine dependence, cigarettes, uncomplicated; Z98.890 Other specified postprocedural states; Z79.899 Other long term (current) drug therapy; N25.89 Other disorders resulting from impaired renal tubular function; E87.6 Hypokalemia; R19.7 Diarrhea, unspecified
CPT/HCPCS: 36415; 70450; 71045; 71250; 80048; 80053; 81001; 82140; 82803; 83036; 83605; 83690; 83735; 84100; 85025; 85060; 85610; 87040; 87045; 87046; 87070; 87075; 87077; 87088; 87186; 87205; 87502; 93005; 93010; 94640; 94660; 94668; 94760; 96365; 96368; 96375; 97161; 97165; 97530; 97535; 99285-25; A9270; G0480; J0360; J0456; J0696; J0780; J1650; J1885; J2060; J2405; J2560; J3411; J3475; J3480; J3490; J7030; J7060; J7070; J7121; U0002

== ENCOUNTER 2025-04-14 18:01 | Observation (INO) | payer MEDICARE, OTHER ==
[~2025-04-14] VITALS: Ht 167.6 cm; Wt 71.0 kg
[~2025-04-14 18:01] MED LIST changes: +AMOX TR-K CLV1 EAC1 PO; +BETAMETHASONE V60 ML TOP; +CLONIDINE HCL0.1 MG PO; +HYDROXYZINE PAM25 MG PO; +MAGOX 400400 MG PO; +WELLBUTRIN XL150 MG PO; +[UNRECOGNIZED DRUG - OTHER] TOP
[2025-04-14 18:27] LABS: BASOPHILS 0.4 % (0.2-1.2); EOSINOPHILS 16.5 % (0.8-7.0); HEMATOCRIT 37.2 % (40.1-51.0); HEMOGLOBIN 12.6 g/dL (13.7-17.5); LYMPHOCYTES 29.5 % (21.8-53.1); MCH 31.2 PG (25.7-32.2); MCHC 33.9 g/dL (32.3-36.5); MCV 92.1 fL (79.0-92.2); MONOCYTES 4.7 % (5.3-12.2); NEUTROPHILS 48.8 % (34.0-67.9); PLATELET COUNT 246 K/uL (163-337); RBC 4.04 M/uL (4.63-6.08)
[2025-04-14] MEDS ORDERED: SODIUM CHLORIDE 0.9% 1,000 ML IV ONE (18:30)
[2025-04-14 18:39] LABS: ALBUMIN 3.5 g/dL (3.4-5.0); ALBUMIN/GLOBULIN RATIO 1.06 (1.1-2.4); ALKALINE PHOSPHATASE 102 U/L (46-116); ALT (SGPT) 22 U/L (14-59); ANION GAP 20.5 (7-21); AST (SGOT) 23 U/L (15-37); BILIRUBIN, TOTAL 0.5 mg/dL (0.2-1.0); BUN/CREATININE RATIO 16.26 (6.0-28.6); CALCIUM 7.8 mg/dL (8.5-10.1); CARBON DIOXIDE 20 mmol/L (21-32); CHLORIDE 102 mmol/L (98-107); CREATININE, SERUM 1.23 mg/dL (0.70-1.30); GLOMERULAR FILTRATION RATE,EST 65 mL/min (>60); POTASSIUM 3.5 mmol/L (3.5-5.1); PROTEIN, TOTAL 6.8 g/dL (6.4-8.2); UREA NITROGEN 20 mg/dL (7-18)
[2025-04-14 18:41] LABS: ALCOHOL, MEDICAL 456 ng/dL (<3)
[2025-04-14] MEDS ORDERED: LACTATED RINGER'S 1,000 ML IV ONE (21:15)
[2025-04-14 21:21] LABS: AMPHETAMINES, URINE POSITIVE (NEGATIVE); BARBITURATES, URINE NEGATIVE (NEGATIVE); BENZODIAZEPINE, URINE NEGATIVE (NEGATIVE); BUPRENORPHINE, URINE NEGATIVE (NEGATIVE); CANNABINOID, URINE POSITIVE (NEGATIVE); COCAINE, URINE NEGATIVE (NEGATIVE); ECSTASY, URINE NEGATIVE (NEGATIVE); FENTANYL, URINE NEGATIVE (NEGATIVE); METHADONE, URINE NEGATIVE (NEGATIVE); OPIATES, URINE NEGATIVE (NEGATIVE); OXYCODONE, URINE NEGATIVE (NEGATIVE); PHENCYCLIDINE, URINE NEGATIVE (NEGATIVE)
[2025-04-14] MEDS ORDERED: LACTATED RINGER'S 1,000 ML IV SCH (21:45)
[2025-04-14 22:19] LABS: LACTIC ACID, BLOOD 4.3 mmol/L (0.4-2.0)
[2025-04-14 22:36] VITALS: BP 111/85
--- NOTE | 2025-04-14 22:45 | NUR ---
PATIENT ARRIVED VIA STRETCHER WITH HIS . PATIENT IS ALERT. ASSISTED INTO THE BED VIA SLIDE SHEET. PATIENT ABLE TO ROLL FOR SKIN ASSESSMENT. FOLLOWS DIRECTIONS. VS STABLE. NIH SCORE = 2. PATIENT HAS SLURRED SPEECH AND SOME SIGNS OF DISORGANIZED THINKING. PATIENT TOLERATING ROOM AIR. LUNG SOUNDS ARE CLEAR. ABD IS MILD DISTENDED; NONTENDER. SKIN IS BARB ON THE CHEST, FACE AND EXTREMITIES. SMALL SCABS NOTED ON LOWER EXTREMITIES AND BACK; NOTHING REQUIRING WOUND CARE. PATIENT PASSED BESIDE SWALLOW EVAL. REMAINS AT BEDSIDE.
[2025-04-14 23:00] VITALS: BP 102/75; BP 82/66
--- NOTE | 2025-04-14 23:00 | NUR ---
PATIENT ASSISTED TO USE URNAL WHILE IN BED. URINE IS CLEAR YELLOW. IV FLUIDS STARTED PER ORDER. IV SITE WNL. PATIENT ASSISTED TO POSITION FOR COMFORT. HOB ELEVATED. LIGHTS DIMMED. TV ON PER REQUEST. IN ROOM.
[2025-04-15] VITALS (10 sets, daily range): BP systolic 82–144; BP diastolic 56–94
--- NOTE | 2025-04-15 01:24 | NUR ---
PATIENT DESAT TO 85% ON ROOM AIR WHILE SLEEPING SOUNDLY. 2L NC PLACED. Sp02 IMPROVED > 90%.
--- NOTE | 2025-04-15 02:30 | NUR ---
PATIENT RESTING WITH EYES CLOSED. WAKES WITH VERBAL AND PHYSICAL STIMULATION. PATIENT IS DROWSY BUT REPORTS HIS NAME AND . MOVES ALL EXTREMITIES. ALLOWED PATIENT TO REST. VS STABLE.
--- NOTE | 2025-04-15 04:30 | NUR ---
PATIENT WAKES TO VOICE. PATIENT IS DROWSY. SPEECH CONTINUES TO BE SLURRED. PATIENT NEURO STATUS IS UNCHANGED. IV SITE WNL. VS STABLE. AT BEDSIDE.
[2025-04-15 05:25] LABS: BASOPHILS 0.4 % (0.2-1.2); EOSINOPHILS 18.8 % (0.8-7.0); HEMATOCRIT 37.5 % (40.1-51.0); HEMOGLOBIN 12.7 g/dL (13.7-17.5); LYMPHOCYTES 33.1 % (21.8-53.1); MCH 31.2 PG (25.7-32.2); MCHC 33.9 g/dL (32.3-36.5); MCV 92.1 fL (79.0-92.2); MONOCYTES 5.8 % (5.3-12.2); NEUTROPHILS 41.7 % (34.0-67.9); PLATELET COUNT 222 K/uL (163-337); RBC 4.07 M/uL (4.63-6.08)
[2025-04-15 05:40] LABS: ALBUMIN 3.2 g/dL (3.4-5.0); ALBUMIN/GLOBULIN RATIO 1.03 (1.1-2.4); ANION GAP 17.6 (7-21); BILIRUBIN, TOTAL 0.4 mg/dL (0.2-1.0); BUN/CREATININE RATIO 15.11 (6.0-28.6); CALCIUM 7.8 mg/dL (8.5-10.1); CREATININE, SERUM 0.86 mg/dL (0.70-1.30); POTASSIUM 3.6 mmol/L (3.5-5.1); PROTEIN, TOTAL 6.3 g/dL (6.4-8.2)
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
[2025-04-15] MEDS ORDERED: THIAMINE HCL 200 MG/2 ML VIAL IV SCH (08:18)
[2025-04-15] MEDS ORDERED: FOLIC ACID 1 MG/0.2 ML ML IV SCH (08:18)
--- NOTE | 2025-04-15 08:25 | NUR ---
PT AWAKE IN BED, RESPONISIVE WITHOUT SIGN OF NEURO DEFICIT. NIH SCORE 1. CIWA SCORE 1. PT DRINKING CLEAR LIQ BREAKFAST WITHOUT DIFFICULTY OR NAUSEA, DENIES HEADACHE. PT ASKING ABOUT DC HOME PLAN, UPDATED ON POC TO COMPLETE MRI THIS AM THEN REASSESS. PT STATES HE DRINKS "TO GET AWAY FROM IT ALL". SIGNIFICANT OTHER LAYING ON COUCH IN ROOM.
[2025-04-15] MEDS ORDERED: LORazepam 2 MG/ML VIAL IV/IM PRN (08:30)
[2025-04-15] MEDS ORDERED: cloNIDine HCL 0.1 MG TAB PO PRN (08:30)
--- NOTE | 2025-04-15 09:35 | NUR ---
PT OFF FLOOR TO MRI - VS STABLE AND PT STABLE.
[2025-04-15] MEDS ORDERED: ondansetron HCL 4 MG/2 ML VIAL IV PRN (11:00)
[2025-04-15] MEDS ORDERED: ACETAMINOPHEN 325 MG TAB PO PRN (11:00)
[2025-04-15] MEDS ORDERED: LACTATED RINGER'S 1,000 ML IV SCH (11:00)
[2025-04-15] MEDS ORDERED: buPROPion HCL XL 150 MG TAB.XL.24H PO SCH (11:20)
--- NOTE | 2025-04-15 11:35 | NUR ---
UR CLINICAL REVIEW: 2MN MACHO, MEETS OBS FOR ETOH INTOXICATION/CVA MRI, IV FLUIDS, CIWA PROTOCOL, VITAMINS MEDICARE OBS 04/14/25 @ 2546 ORDER MATCHES REG NO AUTH REQUIRED PER MEDICARE RULES PLAN TO DC TO HOME WHEN MEDICALLY CLEARED.
[2025-04-15] MEDS ORDERED: PHARMACY RENAL DOSE ADJUSTMENT 1 DOSE MISC PO SCH (12:00)
[2025-04-15] MEDS ORDERED: CERAVE SA CREA340 GM TOP (12:00)
[2025-04-15] MEDS ORDERED: LISINOPRIL40 MG PO (12:01)
[2025-04-15] MEDS ORDERED: VITAMIN D350 MC3 PO (12:03)
[2025-04-15] MEDS ORDERED: BETAMETHASONE V15 GM TOP (12:18)
--- NOTE | 2025-04-15 12:19 | NUR ---
MED REC COMPLETE
--- NOTE | 2025-04-15 12:23 | NUR ---
PT RESTING IN BED WATCHING TV. LUNCH PROVIDED. ABLE TO REPOSISION SELF UP IN BED WITHOUT DIFFICULTY, FOLLOWING DIRECTIONS. DENIES COMPLAINTS. CALL LIGHT IN REACH.
--- NOTE | 2025-04-15 13:45 | NUR ---
PT COMPLETE WITH LUNCH - DENIES NAUSEA OR HEADACHE. CIWA SCORE 3 FOR MILD TREMOR. NEURO EXAM NEGATIVE. PT DENIES NEEDS AT THIS TIME.
[2025-04-15] MEDS ORDERED: HYDROCORTISONE 1% 30 GM TUBE TOP PRN (14:00)
[2025-04-15] MEDS ORDERED: VITAMIN B-1100 MG PO (14:37)
[2025-04-15] MEDS ORDERED: FOLIC ACID1 MG PO (14:37)
[2025-04-15] MEDS ORDERED: CHLORDIAZEPOXID25 MG PO (14:42)
[2025-04-15] MEDS ORDERED: MELATONIN 3 MG TAB PO PRN (21:00)
[2025-04-16] MEDS ORDERED: MULTIVITAMINS THERAPEUTIC 1 EA TAB PO SCH (08:00)
[2025-04-17] MEDS ORDERED: THIAMINE HCL 100 MG TAB PO SCH (08:00)
[2025-04-17] MEDS ORDERED: FOLIC ACID 1 MG TAB PO SCH (08:00)
--- NOTE | 2025-04-18 07:31 | NUR ---
UR RETRO CLINICAL REVIEW: 2 MN FOR VERSALUS-PER ELECTRONIC WIRER MEETS OBS FOR ALCOHOL WITHDRAWL VS CVA WITH NEED FOR MONITORING MEDICARE OBS 04/14/25 @ 4936 ORDER MATCHES REG NO AUTH REQUIRED PER MEDICARE GUIDELINES DISCHARGE TO HOME PENDING FURTHER CIWA SCORES AND ASSESSMENT. ANTICIPATE 1-2 DAYS.
== END 2025-04-15 15:30 | disposition home or self-care (01) ==
LOC: ED 18:01 → CCU 18:03
PROVIDERS: Emergency Medicine; Internal Medicine; ADMIT Student in an Organized Health Care Education/Training Program; ATTEND Student in an Organized Health Care Education/Training Program
DX: F10.129 Alcohol abuse with intoxication, unspecified (principal); I63.511 Cerebral infarction due to unspecified occlusion or stenosis of right middle cerebral artery; E87.20 Acidosis, unspecified; I10 Essential (primary) hypertension; L40.9 Psoriasis, unspecified; F17.210 Nicotine dependence, cigarettes, uncomplicated; D64.9 Anemia, unspecified; I95.9 Hypotension, unspecified; Y90.8 Blood alcohol level of 240 mg/100 ml or more; R29.702 NIHSS score 2; Z79.899 Other long term (current) drug therapy
CPT/HCPCS: 36415; 70450; 70496; 70498; 70551; 71045; 80053; 80307; 83605; 83690; 83735; 83880; 84484; 85025; 96361; 96374; 96375; 99285-25; G0378; G0480; J3411; J7030; J7121; Q9967

== ENCOUNTER 2025-05-01 16:49 | Emergency (ER) | payer MEDICARE, OTHER ==
[~2025-05-01] VITALS: Ht 167.6 cm; Wt 66.9 kg
[~2025-05-01 16:49] MED LIST changes: +BETAMETHASONE V15 GM TOP; +CERAVE SA CREA340 GM TOP; +CHLORDIAZEPOXID25 MG PO; +FOLIC ACID1 MG PO; +LISINOPRIL40 MG PO; +VITAMIN B-1100 MG PO; +VITAMIN D350 MC3 PO
[2025-05-01 17:57] LABS: BASOPHILS 0.5 % (0.2-1.2); EOSINOPHILS 8.0 % (0.8-7.0); LYMPHOCYTES 30.3 % (21.8-53.1); MCH 31.4 PG (25.7-32.2); MCHC 33.7 g/dL (32.3-36.5); MCV 93.1 fL (79.0-92.2); MONOCYTES 6.2 % (5.3-12.2); NEUTROPHILS 54.8 % (34.0-67.9); RBC 4.65 M/uL (4.63-6.08)
[2025-05-01 18:07] LABS: INR 1.0 (0.80-1.30); PROTIME 12.5 Sec (11.2-14.2)
[2025-05-01 18:13] LABS: ALT (SGPT) 22.0 U/L (14-59); AST (SGOT) 22.0 U/L (15-37); GLOMERULAR FILTRATION RATE,EST 80.0 mL/min (>60); PROTEIN, TOTAL 8.1 g/dL (6.4-8.2); UREA NITROGEN 12.0 mg/dL (7-18)
[2025-05-01] MEDS ORDERED: PREDNISONE20 MG PO (18:54)
[2025-05-01 19:05] VITALS: BP 139/100
--- NOTE | 2025-05-03 10:48 | EKG ---
[facility] [address] [facility] [place] [address] Signed Sinus tachycardia Left anterior fascicular block Abnormal ECG When compared with ECG of 27-OCT-2024 14:24, Nonspecific T wave abnormality no longer evident in Inferior leads Confirmed by Ivette Chahal DO ([id number]) on 05/03/2025 10:48:14 AM Electronically Signed By: IVETTE CHAHAL DO 05/03/25 1048 PATIENT NAME: ABDIRASHID LOPEZ Electrocardiogram DATE OF : 56 PHYSICIAN: IVETTE CHAHAL DO REPORT #: [id number] REPORT IS CONFIDENTIAL AND NOT TO BE RELEASED WITHOUT AUTHORIZATION
== END 2025-05-01 19:20 | disposition home or self-care (01) ==
LOC: ED 16:49
PROVIDERS: Emergency Medicine
DX: M54.50 Low back pain, unspecified (principal); F17.200 Nicotine dependence, unspecified, uncomplicated; Z79.899 Other long term (current) drug therapy
CPT/HCPCS: 36415; 80053; 81001; 85025; 85610; 93005; 93010; 99283

== ENCOUNTER 2025-10-12 21:54 | Emergency (ER) | payer MEDICARE, OTHER ==
[~2025-10-12] VITALS: Ht 167.6 cm; Wt 75.0 kg
[2025-10-12] MEDS ORDERED: ACETAMINOPHEN 500 MG TAB PO ONE (22:15)
[2025-10-12 23:01] LABS: BASOPHILS 0.4 % (0.2-1.2); EOSINOPHILS 2.1 % (0.8-7.0); LYMPHOCYTES 24.5 % (21.8-53.1); MCH 31.6 PG (25.7-32.2); MCHC 34.7 g/dL (32.3-36.5); MCV 90.9 fL (79.0-92.2); MONOCYTES 14.0 % (5.3-12.2); NEUTROPHILS 58.9 % (34.0-67.9); RBC 4.53 M/uL (4.63-6.08)
[2025-10-12 23:03] LABS: BLOOD/HGB, URINE NEGATIVE (Negative); KETONE, URINE NEGATIVE (Negative); LEUK ESTERASE, URINE NEGATIVE (negative); NITRITE, URINE NEGATIVE (negative)
[2025-10-12 23:20] LABS: AMPHETAMINES, URINE NEGATIVE (NEGATIVE); BARBITURATES, URINE NEGATIVE (NEGATIVE); BENZODIAZEPINE, URINE NEGATIVE (NEGATIVE); CANNABINOID, URINE NEGATIVE (NEGATIVE); COCAINE, URINE NEGATIVE (NEGATIVE); ECSTASY, URINE NEGATIVE (NEGATIVE); FENTANYL, URINE NEGATIVE (NEGATIVE); METHADONE, URINE NEGATIVE (NEGATIVE); OPIATES, URINE NEGATIVE (NEGATIVE); OXYCODONE, URINE NEGATIVE (NEGATIVE); PHENCYCLIDINE, URINE NEGATIVE (NEGATIVE)
[2025-10-12 23:40] LABS: INFLUENZA B NAA NEGATIVE (NEGATIVE); RESPIRATORY SYNCYTIAL VIR NAA NEGATIVE (NEGATIVE)
[2025-10-12 23:42] LABS: ALCOHOL, MEDICAL 194.0 mg/dL (<3); ALT (SGPT) 18.0 U/L (14-59); AST (SGOT) 16.0 U/L (15-37); GLOMERULAR FILTRATION RATE,EST 72.0 mL/min (>60); PROTEIN, TOTAL 7.3 g/dL (6.4-8.2); UREA NITROGEN 9.0 mg/dL (7-18)
[2025-10-13] MEDS ORDERED: COREG3.125 MG PO (00:34)
[2025-10-13] MEDS ORDERED: ZESTRIL40 MG PO (00:34)
[2025-10-13] MEDS ORDERED: THIAMINE HCL 100 MG TAB PO ONE (00:45)
--- NOTE | 2025-10-14 16:11 | EKG ---
[facility] [address] [facility] [place] [address] Signed Normal sinus rhythm Left anterior fascicular block Minimal voltage criteria for LVH, may be normal variant ( R in aVL ) Abnormal ECG When compared with ECG of 01-MAY-2025 17:30, No significant change was found Confirmed by Ivette Chahal DO ([id number]) on 10/14/2025 4:10:49 PM Electronically Signed By: IVETTE CHAHAL DO 10/14/25 1611 PATIENT NAME: ABDIRASHID LOPEZ Electrocardiogram DATE OF : 56 PHYSICIAN: IVETTE CHAHAL DO REPORT #: [id number] REPORT IS CONFIDENTIAL AND NOT TO BE RELEASED WITHOUT AUTHORIZATION
== END 2025-10-13 01:04 | disposition home or self-care (01) ==
LOC: ED 21:54
PROVIDERS: Internal Medicine
DX: I10 Essential (primary) hypertension (principal); B34.9 Viral infection, unspecified; F17.200 Nicotine dependence, unspecified, uncomplicated; Z79.52 Long term (current) use of systemic steroids; Z79.899 Other long term (current) drug therapy
CPT/HCPCS: 36415; 71045; 80053; 80307; 81003; 82550; 83880; 84484; 85025; 87502; 93005; 93010; 99285-25; A9270; G0480; U0002